=== PATIENT | male | born 1945 | race Two or more races ===

== ENCOUNTER 2019-12-02 12:43 | Inpatient (IN) | payer MEDICARE, OTHER ==
[~2019-12-02] VITALS: Ht 172.7 cm; Wt 78.5 kg
[2019-12-02 12:43] VITALS: BP 158/76
--- NOTE | 2019-12-02 13:01 | Emergency Room Report ---
History of Present Illness General Chief Complaint: Syncope Source: Patient, EMS Present Illness HPI 74-year-old male with past medical history of cancer status s/p resection BIBA status post witnessed syncopal episode prior to arrival. Pt is a poor historian. States he gets chemo every 4-6 weeks at [facility]. Does not recall which cancer is his primary cancer. According to EMS, the patient's family on scene told them that the patient was in the kitchen when he passed out and fell forward onto his right shoulder. They assisted him to the ground. Questionable head trauma. Denies blood thinners. Pt denies prodromal CP, SOB, CALLAHAN, neck pain, n/v/d, melena hematochezia. Does state he has been having bright red bleeding from his martinez for some time and that it might be clogged. Patient is unable to tell me why he was hospitalized at [facility]. The patient's symptoms were gradual onset, severity was moderate, duration since 1 day, prior to arrival. Quality: Weakness Past medical history: Cancer Past surgical history: Cancer resection Smoking: Denies Alcohol use: Denies Drug use: Denies Review of systems: CONST: No fevers or chills, No night sweats PULMONARY: No productive cough, No shortness of breath CARDIAC: No chest pain, No palpitations GI: No vomiting, No diarrhea , No melena_or_BRBPR : No dysuria, No hematuria, No discharge NEURO: No new_focal_weakness_or_numbness, No confusion, No vision changes 14 point Review of Systems is otherwise negative except per HPI Physical Exam: GENERAL: Awake_alert_ nontoxic, no acute distress Spo2 98% on RA -normal EYES: Extraocular muscles are intact. Conjunctivae clear. Lids without swelling ENT: External nose and ear normal_in_appearance. Oropharynx clear. Head_ atraumatic, Moist_oral_mucosa No midline cervical, thoracic, lumbar spinal step-offs or deformity. No meningismus. NECK: No JVD. No meningismus. No thyromegaly. Supple. Trachea midline RESP: Normal respiratory effort. Symmetric rise. No stridor. Clear_to_ auscultation_No_rales_No_wheezes CARDIAC: Regular rate and regular rhytm. No_significant pedal edema. ABDOMEN: Soft. Nondistended. Nontender_No_rebound_or_guarding. Previous abdominal surgical scar. Well-healed. No cellulitis Chronic indwelling Martinez. Gross hematuria around 200 cc. MSK: Normal muscle tone, without rigidity. Extremities without asymmetric deformity or swelling. SKIN: Warm and dry. No visible cyanosis or pallor. No rash NEUROLOGIC: Alert, oriented x3. Motor_and_sensation_grossly_intact. No truncal ataxia. Gait_normal Psych: Normal mood and affect, normal judgment and insight - COORDINATION OF CARE Case was discussed with: Patient , Patient's Family , Patient's Physician Any labs and imaging that were ordered were interpreted as part of the medical decision making: Medical Decision Making/Plan: Differential diagnosis for the patients symptoms include , malignant arrhythmias, obstructive heart disease (critical aortic stenosis, hypertrophic cardiomyopathy), acute anemia, severe dehydration, electrolyte abnormalities, among others. Patient's exam shows gross hematuria. NO focal neuro deficits noted. No C/T/L spinal step offs or peritoneal abdomen, doubt aortic dissection. No palpable amdominal mass to suggest AAA. EKG shows no signs of malignant arrhythmia such as Brugada syndrome, delta wave , epsilon wave, significant heart block, or QTc >500. CXR shows no acute disease. Shoulder Xray is WNL. Troponin is negative x1. Labs show no severe electrolyte derangement such as severe hyponatremia, hypokalemia, acidosis, or hypoglycemia. EKG shows normal sinus rhythm. First-degree AV block. There are biphasic T waves in single beats in lead V2 and V3. Questionable left ventricular hypertrophy Repeat EKG shows normal biphasic T waves. Suspect artifact. Positive left ventricular hypertrophy. CT head negative for acute intracranial hemorrhage. The patient has no loud murmur or evidence of significant obstructive heart disease, symptoms are not in the setting of exertion. The patient is neurologically intact, with normal cerebellar exam, without any evidence of central vertigo as a cause of their symptoms. They appear well hydrated without any evidence of severe dehydration or acute hypovolemia. However, given the patients risk factors, the patient would benefit from admission to observation for continuous cardiac monitoring, given the possibility of cardiac syncope. I spoke with Dr. Champion, and reviewed the patients presentation, workup, results, and treatment. They will admit the patient for further care and evaluation, and assume care of the patient at this time. Allergies: Coded Allergies: ASPIRIN (Verified Allergy, Unknown, 12/02/19) COVID-19 Screening Contact w/high risk pt: No Experienced COVID-19 symptoms?: No COVID-19 Testing performed SADDLE STITCH OPERATOR: No Physical Exam Vital Signs Date Time Temp Pulse Resp B/P (MAP) Pulse Ox O2 Delivery O2 Flow Rate FiO2 12/02/19 12:27 98.2 60 18 144/70 (94) 98 Room Air Sp02 EP Interpretation: reviewed, normal Medical Decision Making Diagnostic Impression: Primary Impression: Syncope Additional Impressions: Hematuria Cancer Shoulder pain, right Contusion of bone EKG Diagnostic Results PA Scribe Text 12-lead EKG (interpreted by me) Time: 1229 Indication: Rhythm analysis Tracing visualized and Interpreted by me. Rhythm: Normal sinus rhythm Rate: 68 bpm QTc: 416 Morphology: No_significant_ST_elevations_or_depressions, No STEMI Impression: Normal_sinus_rhythm_without_significant_abnormality 12-lead EKG (interpreted by me) Time: 1311 Indication: Rhythm analysis Tracing visualized and Interpreted by me. Rhythm: Normal sinus rhythm Rate: 61 bpm QTc: 416 Morphology: No_significant_ST_elevations_or_depressions, No STEMI Impression: Normal_sinus_rhythm_without_significant_abnormality Low ventricular hypertrophy. Chest X-Ray Diagnostic Results Chest X-Ray Diagnostic Results : KADI Scribe Rodney Chest X-Ray: Views: 1 view(s) Indication: Syncope Findings: Normal heart size. Mediastinum normal. No infiltrate. Impression: No acute disease The X-ray(s) were independently viewed and interpreted contemporaneously Electronically signed by Sandy light DO R Shoulder X-ray: Views: [ 3 ] view(s) No fracture. Normal alignment. Soft tissues normal. Joint spaces normal. Indication: [Pain] Impression: [no acute disease] The X-ray(s) were independently viewed and interpreted contemporaneously - Electronically signed by Sandy light DO Reevaluation Time: 13:48 Last Vital Signs Date Time Temp Pulse Resp B/P (MAP) Pulse Ox O2 Delivery O2 Flow Rate FiO2 12/02/19 12:27 98.2 60 18 144/70 (94) 98 Room Air Status: improved Disposition: ADMITTED INPATIENT Admit Decision Time: 13:01 Condition: Stable Sandy Sahni D.O. Dec 02, 2019 13:01
[2019-12-02 13:06] LABS: BASOPHILS % (AUTO) 0.4 % (0.0-2.0); EOSINOPHILS % (AUTO) 0.1 % (0.0-3.0); HEMATOCRIT 41.2 % (42.0-52.0); HEMOGLOBIN 13.8 G/DL (14.2-18.0); MEAN CORPUSCULAR VOLUME 105 FL (80-99); MONOCYTES % (AUTO) 7.4 % (1.0-10.0); NEUTROPHILS % (AUTO) 83.2 % (45.0-75.0); PLATELET COUNT 195 K/UL (150-450); RED BLOOD COUNT 3.91 M/UL (4.70-6.10); RED CELL DISTRIBUTION WIDTH 14.1 % (11.6-14.8); WHITE BLOOD COUNT 10.3 K/UL (4.8-10.8)
[2019-12-02] MEDS ORDERED: TEMOVATE15 GM TOP (13:12)
[2019-12-02] MEDS ORDERED: DELTA D310 MCG PO (13:12)
[2019-12-02] MEDS ORDERED: FOSAMAX70 MG ORAL (13:12)
[2019-12-02] MEDS ORDERED: XELODA150 MG ORAL (13:12)
[2019-12-02] MEDS ORDERED: AMITRIPTYLINE100 MG ORAL (13:12)
[2019-12-02] MEDS ORDERED: AMLODIPINE BESY10 MG ORAL (13:12)
--- NOTE | 2019-12-02 13:29 | Diagnostic Imaging Report ---
Indication: Syncope Technique: spiral acquisitions obtained through the brain. Angled axial and coronal 5 x 5 mm slices were reconstructed. No IV contrast utilized. Radiation dose was minimized using automated exposure control Total dose length product 1072 mGycm. CTDIvol(s) 53 mGy Comparison: none FINDINGS: No acute hemorrhage or edema. No mass effect or midline shift. There is age-related enlargement of the ventricles and extra axial CSF spaces. There is periventricular deep white matter ischemic change. Normal phillips-white differentiation. Visualized orbits are unremarkable. Visualized sinuses are unremarkable. Intact calvarium. IMPRESSION: Chronic and age-related changes. Negative for acute intracranial bleed or mass effect The CT scanner at [facility] is accredited by the [employer] and the scans are performed using protocols designed to limit radiation exposure to as low as reasonably achievable to attain images of sufficient resolution adequate for diagnostic evaluation
[2019-12-02 13:32] LABS: ANION GAP 7 mmol/L (5-15); BLOOD UREA NITROGEN 9 mg/dL (7-18); CALCIUM 8.4 MG/DL (8.5-10.1); CARBON DIOXIDE 26 MMOL/L (21-32); CHLORIDE 99 MMOL/L (98-107); CREATININE 1.1 MG/DL (0.55-1.30); POTASSIUM 3.7 MMOL/L (3.5-5.1); SODIUM 132 MMOL/L (136-145)
[2019-12-02] MEDS ORDERED: TEMODAR100 MG PO (13:32)
[2019-12-02] MEDS ORDERED: ZOFRAN4 MG ORAL (13:32)
[2019-12-02] MEDS ORDERED: DOXAZOSIN MESYLA4 MG ORAL (13:32)
[2019-12-02] MEDS ORDERED: PANTOPRAZOLE SO40 MG ORAL (13:32)
[2019-12-02] MEDS ORDERED: GABAPENTIN600 MG ORAL (13:32)
[2019-12-02] MEDS ORDERED: MULTIVITAMINS1 EAC8 ORAL (13:32)
[2019-12-02] MEDS ORDERED: VITAMIN B-1100 MG ORAL (13:32)
[2019-12-02] MEDS ORDERED: FLUTICASONE PRO16 G1 NASAL (13:32)
[2019-12-02] MEDS ORDERED: FOLIC ACID1 MG ORAL (13:32)
[2019-12-02] MEDS ORDERED: NALTREXONE HCL50 MG PO (13:32)
[2019-12-02 13:44] LABS: ALANINE AMINOTRANSFERASE 21 U/L (12-78); ALBUMIN 3.2 G/DL (3.4-5.0); ALBUMIN/GLOBULIN RATIO 0.9 (1.0-2.7); ALKALINE PHOSPHATASE 55 U/L (46-116); ASPARTATE AMINO TRANSFERASE 24 U/L (15-37); BILIRUBIN,TOTAL 0.9 MG/DL (0.2-1.0)
--- NOTE | 2019-12-02 14:45 | Diagnostic Imaging Report ---
Indication: Right shoulder pain Technique: 3 views of the shoulder Comparison: none Findings: No acute fractures. No dislocations. Joint spaces are preserved Impression: Negative
--- NOTE | 2019-12-02 14:45 | Diagnostic Imaging Report ---
Indication: Reason For Exam: SYNCOPE Technique: One view of the chest Comparison: none Findings: Lungs and pleural spaces are clear. Heart size is normal. Impression: No acute process
[2019-12-02] MEDS ORDERED: Morphine Sulfate 2mg/ml Inj(IV/IM USE ONLY) IVP ONE (15:00)
[2019-12-02] MEDS ORDERED: Morphine Sulfate 2mg/ml Inj(IV/IM USE ONLY) IVP PRN (18:00)
[2019-12-02] MEDS ORDERED: HydrALAZINE 10mg Tab ORAL PRN (18:00)
[2019-12-02] MEDS ORDERED: HYDROcodone/Acetamin 5/325 tab ORAL PRN (18:00)
--- OUTSIDE RECORDS SUMMARY | 2019-12-02 18:44 | Consultation ---
Consult Note Consult Note Blood Pressure 131/81 11/24/2019 2:58 PM PDT Pulse 80 11/24/2019 2:58 PM PDT Temperature 36.1 C (96.9 F) 11/24/2019 2:58 PM PDT Respiratory Rate 18 11/24/2019 2:58 PM PDT Oxygen Saturation 97% 11/24/2019 2:58 PM PDT Inhaled Oxygen Concentration - - Weight 78.6 kg (173 lb 3.2 oz) 11/24/2019 2:58 PM PDT Height 175.3 cm (5' 9") 11/24/2019 2:58 PM PDT Body Mass Index 25.58 11/24/2019 2:58 PM PDT Patient Instructions - documented in this encounter Patient Instructions Olga Lopez MD - 11/24/2019 2:30 PM PDT No gallito alcohol antes y despues cirugia No gallito aspirina, ibuprofen, diclofenac, naproxen 7 dotson antes de cirugia No gallito herbos 14 dotson antes de cirugia ~ Progress Notes - documented in this encounter Olga Lopez MD - 11/24/2019 2:30 PM PDT [facility] PREOPERATIVE MEDICINE CONSULTATION PREOPERATIVE MEDICINE CONSULTATION NOTE Patient Name: Pierre Melton Patient Date of : 1945 Date of Consultation: 11/24/2019 PRIMARY CARE PHYSICIAN: Olga Lopez MD REFERRING PHYSICIAN/SURGEON: Dr. Mcdowell PLANNED SURGERY: TURP PLANNED SURGERY DATE: 12/01/19 PLANNED ANESTHESIA: General CHIEF COMPLAINT / REASON FOR CONSULTATION: Preoperative medical evaluation. SOURCE OF INFORMATION: The following history was generated by an interview with Mr. MELTON, as well as a review of medical records available in [facility]. HISTORY OF PRESENT ILLNESS: Pierre Melton is a 74 y.o. male who has a past medical history of Anemia (05/06/2018), Anxiety, BPH (benign prostatic hyperplasia ), Cancer (HCC/CONOR), Elevated liver enzymes, Erectile dysfunction, History of blood transfusion, Hypertension, Neuroendocrine tumor, Osteoarthritis, Osteoporosis, Post-operative nausea and vomiting, Postherpetic neuralgia, Renal insufficiency, S/P laparoscopic cholecystectomy, Single kidney, Sludge in gallbladder, and Zoster (2012). The patient is presenting to outpatient clinic today for preoperative medical evaluation. # BPHs/p TURP x2with nocturia-doxazosin 4 mg daily, pending repeat TURP # HTN - amlodipine 10 mg daily # Alcohol abuse - still occasional beer, last drink 1 week ago, per typically drinking 2-3 beers/day, no longer taking naltrexone per Dr. 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 He has no history of coronary stents, pacemaker or AICD. He denies resting or exertional chest discomfort, dyspnea, presyncope, syncope, palpitations, LE edema, orthopnea, or PND. No prior stress testing. Stress test 07/15/12 Impression: a) Normal rest/stress myocardial perfusion test with no scintigraphic evidence of stress induced ischemia or prior myocardial infarction. b) Normal left ventricular size and systolic function. The patient has a medical history that includes (check all that apply; provide details as needed): [] Coronary artery disease. [] Cardiac arrhythmia. [] Valvular heart disease. [] Cerebrovascular disease (history of CVA, TIA). [] Heart failure. [] Diabetes mellitus. [] Thyroid disease. [x] Renal disease. Single kidney, normal Cr [] Liver disease. [] Rheumatologic disease. [] Obstructive lung disease (COPD, asthma, etc.). [x] Obstructive sleep apnea. Diagnosed JOSE pending new CPAP since 11/12/19, follows Dr. Haines Pulmonology [] Pulmonary hypertension. [] Current inhaled tobacco smoker. [] Venous thromboembolic disease (PE, DVT). [x] Hematological and/or oncological disease. NET of gastric antrum, s/p XRT/ resection, now on chemo [] None of the above. Preoperative functional status (check one): [x] Totally independent. [] Partially dependent. [] Totally dependent. Exercise/activity tolerance: His functional capacity is greater than 4 METS ( able to climb more than flights of stairs without rest). Can walk 6-7 blocks without SOB/CP. Stairs limited 2/2 herpetic neuropathy pain STOP-BANG (Anesthesia risk assessment): Snoring - Do you snore loudly (louder than talking or loud enough to be heard through closed doors)? [x] Yes [] No Tired - Do you often feel tired, fatigued, or sleepy during daytime? [x] Yes [] No Observed - Has anyone observed you stop breathing during your sleep? [x] Yes [] No Blood pressure - Do you have or are you being treated for high blood pressure? [ x] Yes [] No BMI more than 35 kg/m2? [] Yes [x] No Age over 50 yr old? [x] Yes [] No Neck circumference greater than 16 in? [] Yes [x] No Gender male? [x] Yes [] No Body mass index is 25.58 kg/m. PAST MEDICAL/SURGICAL HISTORY: Past Medical History: Diagnosis Date Anemia 05/06/2018 Anxiety BPH (benign prostatic hyperplasia) Cancer (HCC/CONOR) neuroendocrine Elevated liver enzymes Due to alcohol Erectile dysfunction History of blood transfusion Hypertension Neuroendocrine tumor Gastric antrum, s/p resection (gastroduodenectomy, Billroth II), XRT in 2011; sandostatin [id number] now on hold due to hyponatremia Osteoarthritis Osteoporosis on fosamax since 2016 Post-operative nausea and vomiting s/p TURP 2002 Postherpetic neuralgia Renal insufficiency S/P laparoscopic cholecystectomy Single kidney Sludge in gallbladder Zoster 2012 Past Surgical History: Procedure Laterality Date ABDOMINAL SURGERY r/t neuroendocrine ca APPENDECTOMY 25years ago CHOLECYSTECTOMY Neuroendocrine tumor resection 2012 PARTIAL GASTRECTOMY STOMACH SURGERY 2012 TRANSURETHRAL RESECTION OF PROSTATE 2002 at [facility] * Complications with any surgical procedure listed above: No. * Personal history of adverse reaction to anesthesia: No. MEDICATIONS: Current Outpatient Medications Medication Sig alendronate (FOSAMAX) 70 mg tablet Take 70 mg by mouth every seven (7) days . AMITRIPTYLINE 50 mg tablet TAKE 1 TABLET BY MOUTH EVERYDAY AT BEDTIME amLODIPine 10 mg tablet Take 1 tablet (10 mg total) by mouth daily. capecitabine 500 mg tablet Take 3 tablets (1,500 mg total) by mouth two (2) times daily Day 1-14, then off six weeks. cholecalciferol 25 mcg (1000 units) capsule Take 1 capsule (1,000 Units total ) by mouth daily. clindamycin 1% external solution Apply to affected area 2 times daily. clobetasol 0.05% external solution Apply topically two (2) times daily. diclofenac 1% gel Apply 4g TID as needed for knee pain. DOXAZOSIN 4 mg tablet TAKE 1 TABLET (4 MG TOTAL) BY MOUTH AT BEDTIME. FOLIC ACID 1 mg tablet TAKE 1 TABLET BY MOUTH EVERY DAY GABAPENTIN 600 mg tablet TAKE 1 TABLET (600 MG TOTAL) BY MOUTH THREE (3) TIMES DAILY. multivitamin tablet Take 1 tablet by mouth daily. NALTREXONE 50 mg tablet TAKE 1 TABLET BY MOUTH EVERY DAY ondansetron 8 mg tablet Take 1 tablet (8 mg total) by mouth every eight (8) hours as needed for Nausea or Vomiting. pantoprazole [address] tablet Take 1 tablet (40 mg total) by mouth daily. sodium chloride 1 g tablet Take 1 g by mouth daily. temozolomide 100 mg capsule TAKE 4 CAPSULES (400MG) BY MOUTH ONE TIME DAILY ONLY ON DAYS 10-14 OF A 28 DAY CYCLE. *GENERIC FOR TEMODAR*. THIAMINE 100 mg tablet TAKE 1 TABLET BY MOUTH EVERY DAY zoster vac recomb adjuvanted (SHINGRIX) 50 mcg injection Administer 50 MCG IM now and repeat in 2 - 6 months. (Patient not taking: Reported on 10/16/2019.) No current facility-administered medications for this visit. ALLERGIES: Aspirin and Shellfish allergy SOCIAL HISTORY: Does not smoke tobacco, 2-3 alcoholic drinks/day reports that he has never smoked. He has never used smokeless tobacco. He reports current alcohol use. He reports that he does not use drugs. FAMILY HISTORY: family history includes Arthritis in an other family member; Breast cancer in his sister; Hypertension in an other family member; Prostate cancer in his father. Reviewed & non-contributory except as noted above. * Family history of adverse reaction to anesthesia: No. ROS: A 14-system review was performed and was otherwise negative except as noted above in the HPI and as follows: Urinary frequency. SURROGATE MEDICAL DECISION MAKER: In the event the patient is unable to make medical decisions, the patient designates the following person as his surrogate medical decision maker: Extended Emergency Contact Information Primary Emergency Contact: Yury Melton [facility] Mobile Relation: Son Secondary Emergency Contact: Teodora Melton Address: [address], [place] [id number] [place] [address] Mobile Relation: Spouse Code Status: FULL CODE PHYSICAL EXAMINATION: BP 131/81 | Pulse 80 | Temp 36.1 C (96.9 F) (Forehead) | Resp 18 | Ht 5' 9" ( 1.753 m) | Wt 173 lb 3.2 oz (78.6 kg) | SpO2 97% | BMI 25.58 kg/m General: alert, well-appearing, well-developed, and in no distress Head: Atraumatic, normocephalic Eyes: pupils equal & symmetric, sclera anicteric Ears, Nose, Mouth & Throat: hearing grossly normal, mucous membranes moist, pharynx normal without lesions. Neck: supple, trachea appears midline, no thyroid mass. Cardiac: Regular rate and rhythm, normal S1/S2, no M/R/G, JVP < 8 cm, no lower extremity edema Lungs: clear to auscultation; no wheezes, rales or rhonchi; normal effort, no accessory muscle use. Abdomen: soft, nontender, nondistended, no hepatosplenomegaly appreciated. MSK: no joint tenderness, deformity or swelling. Skin: normal coloration and turgor, no systemic rashes. Neuro: alert, oriented, normal speech, no focal findings or movement disorder noted LABORATORY STUDIES: Lab Results Component Value Date NA 133 (L) 10/07/2019 K 4.0 10/07/2019 CL 97 10/07/2019 CO2 21 10/07/2019 BUN 10 10/07/2019 CREAT 0.80 10/07/2019 GLUCOSE 92 10/07/2019 CALCIUM 8.8 10/07/2019 MG 1.6 12/18/2018 PHOS 2.2 (L) 08/07/2014 ALT 11 10/07/2019 AST 27 10/07/2019 BILITOT 1.1 10/07/2019 ALKPHOS 85 10/07/2019 ALBUMIN 4.1 10/07/2019 HGBA1C 5.4 05/28/2019 TSH 2.1 05/28/2019 WBC 3.53 (L) 10/07/2019 HGB 12.8 (L) 10/07/2019 HCT 36.9 (L) 10/07/2019 MCV 103.1 (H) 10/07/2019 PLT 147 10/07/2019 APTT 35.3 12/17/2018 PT 13.3 12/16/2018 INR 1.1 12/16/2018 OTHER STUDIES: EK11/24/2019, reviewed by me: Normal sinus rhythm, heart rate 71, QTc 389, no pathologic Q waves, no acute ischemic ST-T changes. Comparison to prior EKG (if available): 12/16/18. TTE 03/07/18 IMPRESSION: 1. Normal left ventricular size. 2. Mild concentric left ventricular hypertrophy. 3. Left ventricular ejection fraction is approximately 55 to 60%. 4. The calculated ejection fraction (Gil's) is 55 %. 5. Abnormal LV diastolic function (Grade I). 6. Mild aortic regurgitation. Stress test 07/15/12 Impression: a) Normal rest/stress myocardial perfusion test with no scintigraphic evidence of stress induced ischemia or prior myocardial infarction. b) Normal left ventricular size and systolic function. VISIT DIAGNOSES: 1. Preoperative examination 2. BPH with urinary obstruction 3. Essential hypertension IMPRESSION/RISK ASSESSMENT: The patient is low-risk (0.4%) for perioperative major adverse cardiac events (MACE) for the proposed surgery. Functional capacity (based on history obtained in clinic today): > or = 4 METS. ASA physical status classification: I: Healthy, no disease outside surgical process.. Risk factors for perioperative pulmonary complications include: age > 50 years *, general anesthesia*, obstructive sleep apnea and alcohol use. Known untreated JOSE, awaiting CPAP approval RECOMMENDATIONS: The patient is appropriately risk-stratified for the proposed surgery. The patient is medically optimized for the proposed surgery. The patient does not have active medical issues that need to be addressed prior to proceeding with the proposed surgery. Preoperative laboratory/diagnostic testing: Not indicated. Perioperative medication management: The patient was advised to continue all current outpatient medications perioperatively, with the following exceptions: none. The patient was advised to avoid use of aspirin-containing products at least 7 days prior to surgery (10 days for neurosurgical and spine procedures), NSAID- containing products at least 7 days prior to surgery, and herbal medications/ supplements at least 14 days prior to surgery. Additional recommendations regarding perioperative management of chronic medical conditions as follows: Advised to stop drinking alcohol, f/u Na given hx hyponatremia in setting of alcohol abuse Recommend routine follow-up with primary care physician and/or subspecialty providers following surgery. Orders Placed This Encounter Bacterial Culture Urine, Clean Catch CBC & Auto Differential Comprehensive Metabolic Panel APTT Prothrombin Time Panel Urinalysis,Routine ECG 12-Lead Clinic Performed Thank you for allowing me to participate in the care of this patient. Please feel free to contact me with any questions regarding this patient's preoperative medical evaluation. Signed: Olga Lopez MD Addendum 11/26/2019: Unremarkable pre-op labs: stable chronic hyponatremia, pt stopped drinking 1 week ago in anticipation of surgery. Urine culture negative growth to date. Results for PIERRE MLETON ( ) as of 11/26/2019 15:48 Ref. Range 11/24/2019 15:45 White Blood Cell Count Latest Ref Range: 4.16 - 9.95 x10E3/uL 5.35 Hemoglobin Latest Ref Range: 13.5 - 17.1 g/dL 13.5 Hematocrit Latest Ref Range: 38.5 - 52.0 % 40.3 Red Blood Cell Count Latest Ref Range: 4.41 - 5.95 x10E6/uL 3.75 (L) Mean Corpuscular Volume Latest Ref Range: 79.3 - 98.6 fL 107.5 (H) Mean Corpuscular Hemoglobin Latest Ref Range: 26.4 - 33.4 pg 36.0 (H) MCH Concentration Latest Ref Range: 31.5 - 35.5 g/dL 33.5 Red Cell Distribution Width-SD Latest Ref Range: 36.9 - 48.3 fL 63.7 (H) Red Cell Distribution Width-CV Latest Ref Range: 11.1 - 15.5 % 16.1 (H) Platelet Count, Auto Latest Ref Range: 143 - 398 x10E3/uL 180 Mean Platelet Volume Latest Ref Range: 9.3 - 13.0 fL 10.4 Nucleated RBC%, automated Latest Ref Range: No Ref. Range % 0.0 Absolute Nucleated RBC Count Latest Ref Range: 0.00 - 0.00 x10E3/uL 0.00 Neutrophil Percent, Auto Latest Ref Range: No Ref. Range % 65.5 Lymphocyte Percent, Auto Latest Ref Range: No Ref. Range % 19.4 Monocyte Percent, Auto Latest Ref Range: No Ref. Range % 12.9 Eosinophil Percent, Auto Latest Ref Range: No Ref. Range % 1.1 Basophil Percent, Auto Latest Ref Range: No Ref. Range % 1.1 Immature Granulocytes% Latest Ref Range: No Reference Range % 0.0 Absolute Neut Count Latest Ref Range: 1.80 - 6.90 x10E3/uL 3.50 Neutrophil Abs (Prelim) Latest Ref Range: See Absolute Neut Ct. x10E3/uL 3.50 Absolute [place] Count Latest Ref Range: 0.20 - 0.80 x10E3/uL 0.69 Absolute Lymphocyte Count Latest Ref Range: 1.30 - 3.40 x10E3/uL 1.04 (L) Absolute Baso Count Latest Ref Range: 0.00 - 0.10 x10E3/uL 0.06 Absolute Eos Count Latest Ref Range: 0.00 - 0.50 x10E3/uL 0.06 Absolute Immature Gran Count Latest Ref Range: 0.00 - 0.04 x10E3/uL 0.00 Prothrombin Time Latest Ref Range: 11.5 - 14.4 seconds 13.6 INR Latest Ref Range: . 1.1 APTT Latest Ref Range: 24.4 - 36.2 seconds 32.6 Sodium Latest Ref Range: 135 - 146 mmol/L 132 (L) Potassium Latest Ref Range: 3.6 - 5.3 mmol/L 4.9 Chloride Latest Ref Range: 96 - 106 mmol/L 92 (L) Total CO2 Latest Ref Range: 20 - 30 mmol/L 22 Anion Gap Latest Ref Range: 8 - 19 mmol/L 18 Urea Nitrogen Latest Ref Range: 7 - 22 mg/dL 7 Creatinine Latest Ref Range: 0.60 - 1.30 mg/dL 0.75 GFR Est.for Latest Ref Range: See GFR Additional Information mL /min/1.73m2 >89 GFR Est.for Non- Americ Latest Ref Range: See GFR Additional Information mL/min/1.73m2 >89 GFR Additional Information Unknown See Comment Glucose Latest Ref Range: 65 - 99 mg/dL 98 Calcium Latest Ref Range: 8.6 - 10.4 mg/dL 9.4 AST (SGOT) Latest Ref Range: 13 - 47 U/L 30 ALT (SGPT) Latest Ref Range: 8 - 64 U/L 15 Alkaline Phosphatase Latest Ref Range: 37 - 113 U/L 67 Bilirubin,Total Latest Ref Range: 0.1 - 1.2 mg/dL 1.2 Albumin Latest Ref Range: 3.9 - 5.0 g/dL 4.3 TOTAL PROTEIN Latest Ref Range: 6.1 - 8.2 g/dL 7.7 Urine Color Latest Ref Range: Light-Yellow pH,Urine Latest Ref Range: 5.0 - 8.0 6.5 Specific [place] Latest Ref Range: 1.005 - 1.030 1.007 Blood,Dipstick Latest Ref Range: Negative Negative Bili,Dipstick Latest Ref Range: Negative Negative Glucose,Random Urine Latest Ref Range: Negative Negative Ketones Latest Ref Range: Negative Negative Protein Latest Ref Range: Negative Negative Nitrite Latest Ref Range: Negative Negative Leukocyte Esterase Latest Ref Range: Negative Negative RBC per uL Latest Ref Range: 0 - 11 cells/uL 0 WBC per uL Latest Ref Range: 0 - 22 cells/uL 1 RBC per HPF Latest Ref Range: 0 - 2 cells/HPF 0 WBC per HPF Latest Ref Range: 0 - 4 cells/HPF 0 Squamous Epi Cells Latest Ref Range: 0 - 17 cells/uL 1 BACTERIAL CULTURE URINE Unknown Rpt Bacterial Culture Urine Unknown No Growth at 1:1000 dilution Olga Lopez MD [facility] Internal Medicine [address] [facility] [facility] [address] Kevin Ramirez MD Dec 02, 2019 18:43
--- NOTE | 2019-12-02 18:46 | Cardiology Progress Note ---
Assessment/Plan Assessment/Plan [id number] full note dicated please review soumya note which i copied in his records form [facility] hhdevorah balderrama turp at [facility] yest dcd today may elliot passed out whe stood up at home seril enxyme / ekg / echo / tele ivf observe on tele d/w dr hickman as well Objective Last 24 Hour Vital Signs Date Time Temp Pulse Resp B/P (MAP) Pulse Ox O2 Delivery O2 Flow Rate FiO2 12/02/19 15:18 97.8 69 16 160/84 98 Room Air 12/02/19 12:43 98.0 61 18 158/76 98 Room Air 12/02/19 12:27 98.2 60 18 144/70 (94) 98 Room Air Laboratory Tests Test 12/02/19 12:45 White Blood Count 10.3 K/UL (4.8-10.8) Red Blood Count 3.91 M/UL (4.70-6.10) L Hemoglobin 13.8 G/DL (14.2-18.0) L Hematocrit 41.2 % (42.0-52.0) L Mean Corpuscular Volume 105 FL (80-99) H Mean Corpuscular Hemoglobin 35.3 PG (27.0-31.0) H Mean Corpuscular Hemoglobin Concent 33.5 G/DL (32.0-36.0) Red Cell Distribution Width 14.1 % (11.6-14.8) Platelet Count 195 K/UL (150-450) Mean Platelet Volume 6.4 FL (6.5-10.1) L Neutrophils (%) (Auto) 83.2 % (45.0-75.0) H Lymphocytes (%) (Auto) 9.0 % (20.0-45.0) L Monocytes (%) (Auto) 7.4 % (1.0-10.0) Eosinophils (%) (Auto) 0.1 % (0.0-3.0) Basophils (%) (Auto) 0.4 % (0.0-2.0) Prothrombin Time 11.1 SEC (9.30-11.50) Prothromb Time International Ratio 1.0 (0.9-1.1) Activated Partial Thromboplast Time 25 SEC (23-33) Sodium Level 132 MMOL/L (136-145) L Potassium Level 3.7 MMOL/L (3.5-5.1) Chloride Level 99 MMOL/L (98-107) Carbon Dioxide Level 26 MMOL/L (21-32) Anion Gap 7 mmol/L (5-15) Blood Urea Nitrogen 9 mg/dL (7-18) Creatinine 1.1 MG/DL (0.55-1.30) Estimat Glomerular Filtration Rate > 60 mL/min (>60) Glucose Level 120 MG/DL (74-106) H Calcium Level 8.4 MG/DL (8.5-10.1) L Total Bilirubin 0.9 MG/DL (0.2-1.0) Aspartate Amino Transf (AST/SGOT) 24 U/L (15-37) Alanine Aminotransferase (ALT/SGPT) 21 U/L (12-78) Alkaline Phosphatase 55 U/L (46-116) Troponin I 0.002 ng/mL (0.000-0.056) Pro-B-Type Natriuretic Peptide 157 pg/mL (0-125) H Total Protein 6.9 G/DL (6.4-8.2) Albumin 3.2 G/DL (3.4-5.0) L Globulin 3.7 g/dL Albumin/Globulin Ratio 0.9 (1.0-2.7) L Lipase 158 U/L (73-393) Microbiology Date/Time Source Procedure Growth Status 12/02/19 12:00 Nasopharynx SARS-CoV-2 RdRp Gene Assay - Final Complete Kevin Ramirez MD Dec 02, 2019 18:46
--- NOTE | 2019-12-02 19:19 | History & Physical ---
History of Present Illness General Reason for Hospitalization: Syncope Present Illness HPI 74-year-old male with past medical history of cancer status s/p resection BIBA status post witnessed syncopal episode prior to arrival. Pt is a poor historian. States he gets chemo every 4-6 weeks at [facility]. . According to EMS, the patient's family on scene told them that the patient was in the kitchen when he passed out and fell forward onto his right shoulder. They assisted him to the ground. Questionable head trauma. Denies blood thinners. Pt denies prodromal CP, SOB, CALLAHAN, neck pain, n/v/d, melena hematochezia. Does state he has been having bright red bleeding from his martinez for some time and that it might be clogged. CT head: FINDINGS: No acute hemorrhage or edema. No mass effect or midline shift. There is age-related enlargement of the ventricles and extra axial CSF spaces. There is periventricular deep white matter ischemic change. Normal phillips-white differentiation. Visualized orbits are unremarkable. Visualized sinuses are unremarkable. Intact calvarium. IMPRESSION: Chronic and age-related changes. Negative for acute intracranial bleed or mass effect he following history was generated by an interview with Mr. MELTON, as well as a review of medical records available in [facility]. Per recent Dc summary at [facility] HISTORY OF PRESENT ILLNESS: Pierre Melton is a 74 y.o. male who has a past medical history of Anemia (05/06/2018), Anxiety, BPH (benign prostatic hyperplasia ), Cancer (HCC/CONOR), Elevated liver enzymes, Erectile dysfunction, History of blood transfusion, Hypertension, Neuroendocrine tumor, Osteoarthritis, Osteoporosis, Post-operative nausea and vomiting, Postherpetic neuralgia, Renal insufficiency, S/P laparoscopic cholecystectomy, Single kidney, Sludge in gallbladder, and Zoster (2012). The patient is presenting to outpatient clinic today for preoperative medical evaluation. # BPHs/p TURP x2with nocturia-doxazosin 4 mg daily, pending repeat TURP # HTN - amlodipine 10 mg daily # Alcohol abuse - still occasional beer, last drink 1 week ago, per typically drinking 2-3 beers/day, no longer taking naltrexone per Dr. 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, now on oral chemocapecitabine/ temodar # post-herpetic neuralgia - gabapentin, amitriptyline Allergies: Coded Allergies: ASPIRIN (Verified Allergy, Unknown, 12/02/19) FISH CONTAINING PRODUCTS (Verified Allergy, Unknown, 12/02/19) SHELLFISH DERIVED (Verified Allergy, Unknown, 12/03/19) COVID-19 Screening Contact w/high risk pt: No Experienced COVID-19 symptoms?: No Medication History Scheduled Alendronate Sodium* (Fosamax*), 70 MG ORAL ONCE A WEEK, (Reported) Amitriptyline HCl (Amitriptyline HCl), 50 MG ORAL BEDTIME, (Reported) Amlodipine Besylate* (Amlodipine Besylate*), 10 MG ORAL DAILY, (Reported) Capecitabine (Xeloda), 1,500 MG ORAL TWICE A DAY, (Reported) Cholecalciferol (Vitamin D3) (Delta D3), 25 MCG PO DAILY, (Reported) Clobetasol Propionate (Clobetasol Propionate), 1 APPLIC TOP TWICE A DAY, ( Reported) Doxazosin Mesylate* (Doxazosin Mesylate*), 4 MG ORAL DAILY, (Reported) Fluticasone Propionate* (Fluticasone Propionate*), 2 SPRAY NASAL DAILY, ( Reported) Folic Acid* (Folic Acid*), 1 MG ORAL DAILY, (Reported) Gabapentin* (Gabapentin*), 600 MG ORAL THREE TIMES A DAY, (Reported) Multivitamin With Minerals (Multivitamins With Minerals*), 1 TAB ORAL DAILY, ( Reported) Naltrexone Hcl (Naltrexone Hcl), 50 MG PO DAILY, (Reported) Pantoprazole* (Pantoprazole*), 40 MG ORAL DAILY, (Reported) Thiamine Hcl* (Vitamin B-1*), 100 MG ORAL DAILY, (Reported) Scheduled PRN Ondansetron (Zofran), 8 MG ORAL Q8H PRN for Nausea & Vomiting, (Reported) Miscellaneous Medications Temozolomide (Temodar), 400 MG PO, (Reported) Patient History Healthcare decision maker Resuscitation status Advanced Directive on File Review of Systems Review of Symptoms General ROS: no weight loss or fever Psychological ROS: no depression or mood changes, no memory loss Ophthalmic ROS: no visual changes or eye irritation ENT ROS: no nasal congestion, hearing loss, dizziness Allergy and Immunology ROS: no allergic symptoms or urticaria Hematological and Lymphatic ROS: no swollen glands, unusual bleeding or bruising Endocrine ROS: no polyuria, polydipsia, weight changes, temperature intolerance Respiratory ROS: no cough, shortness of breath, or wheezing Cardiovascular ROS: no chest pain or dyspnea on exertion Gastrointestinal ROS: denies abdominal pain, bright red blood in stool. Musculoskeletal ROS: no myalgias or arthralgias Neurological ROS: no TIA or stroke symptoms Dermatological ROS: no new or changing skin lesions, rashes or pruritis Physical Exam Physical Exam General appearance: alert, cooperative, no distress, appears stated age Head: Normocephalic, without obvious abnormality, atraumatic Eyes: conjunctivae/corneas clear. PERRL, EOM's intact. Fundi benign Throat: Lips, mucosa, and tongue normal. Teeth and gums normal Neck: supple, symmetrical, trachea midline, no adenopathy, thyroid: not enlarged, symmetric, no tenderness/mass/nodules, no carotid bruit and no JVD Lungs: clear to auscultation bilaterally Heart: regular rate and rhythm, S1, S2 normal, no murmur, click, rub or gallop Abdomen: soft, non-tender. Bowel sounds normal. No masses, no organomegaly Extremities: extremities normal, atraumatic, no cyanosis or edema Pulses: 2+ and symmetric Skin: Skin color, texture, turgor normal. No rashes or lesions Neurologic: Grossly normal Last 24 Hour Vital Signs Date Time Temp Pulse Resp B/P (MAP) Pulse Ox O2 Delivery O2 Flow Rate FiO2 12/02/19 15:18 97.8 69 16 160/84 98 Room Air 12/02/19 12:43 98.0 61 18 158/76 98 Room Air 12/02/19 12:27 98.2 60 18 144/70 (94) 98 Room Air Laboratory Tests Test 12/02/19 12:45 White Blood Count 10.3 K/UL (4.8-10.8) Red Blood Count 3.91 M/UL (4.70-6.10) L Hemoglobin 13.8 G/DL (14.2-18.0) L Hematocrit 41.2 % (42.0-52.0) L Mean Corpuscular Volume 105 FL (80-99) H Mean Corpuscular Hemoglobin 35.3 PG (27.0-31.0) H Mean Corpuscular Hemoglobin Concent 33.5 G/DL (32.0-36.0) Red Cell Distribution Width 14.1 % (11.6-14.8) Platelet Count 195 K/UL (150-450) Mean Platelet Volume 6.4 FL (6.5-10.1) L Neutrophils (%) (Auto) 83.2 % (45.0-75.0) H Lymphocytes (%) (Auto) 9.0 % (20.0-45.0) L Monocytes (%) (Auto) 7.4 % (1.0-10.0) Eosinophils (%) (Auto) 0.1 % (0.0-3.0) Basophils (%) (Auto) 0.4 % (0.0-2.0) Prothrombin Time 11.1 SEC (9.30-11.50) Prothromb Time International Ratio 1.0 (0.9-1.1) Activated Partial Thromboplast Time 25 SEC (23-33) Sodium Level 132 MMOL/L (136-145) L Potassium Level 3.7 MMOL/L (3.5-5.1) Chloride Level 99 MMOL/L (98-107) Carbon Dioxide Level 26 MMOL/L (21-32) Anion Gap 7 mmol/L (5-15) Blood Urea Nitrogen 9 mg/dL (7-18) Creatinine 1.1 MG/DL (0.55-1.30) Estimat Glomerular Filtration Rate > 60 mL/min (>60) Glucose Level 120 MG/DL (74-106) H Calcium Level 8.4 MG/DL (8.5-10.1) L Total Bilirubin 0.9 MG/DL (0.2-1.0) Aspartate Amino Transf (AST/SGOT) 24 U/L (15-37) Alanine Aminotransferase (ALT/SGPT) 21 U/L (12-78) Alkaline Phosphatase 55 U/L (46-116) Troponin I 0.002 ng/mL (0.000-0.056) Pro-B-Type Natriuretic Peptide 157 pg/mL (0-125) H Total Protein 6.9 G/DL (6.4-8.2) Albumin 3.2 G/DL (3.4-5.0) L Globulin 3.7 g/dL Albumin/Globulin Ratio 0.9 (1.0-2.7) L Lipase 158 U/L (73-393) Microbiology Date/Time Source Procedure Growth Status 12/02/19 12:00 Nasopharynx SARS-CoV-2 RdRp Gene Assay - Final Complete Height (Feet): 5 Height (Inches): 8.00 Weight (Pounds): 170 Medications Current Medications Medications (Trade) Dose Ordered Sig/Mala Route PRN Reason Start Time Stop Time Status Last Admin Dose Admin Acetaminophen (Tylenol) 650 mg Q6H PRN ORAL Mild Pain (Pain Scale 1-3) 12/02/19 18:00 01/01/20 17:59 Acetaminophen/ Hydrocodone Bitart ([place] 5/325) 1 tab Q6H PRN ORAL Moderate Breakthru Pain (5-7) 12/02/19 18:00 12/09/19 17:59 Amitriptyline HCl (Elavil) 50 mg BEDTIME ORAL 12/02/19 21:00 01/01/20 20:59 Amlodipine Besylate (Norvasc) 10 mg DAILY ORAL 12/03/19 09:00 01/02/20 08:59 Clobetasol Propionate (Temovate) 1 applic TWICE A DAY TOPIC 12/03/19 09:00 03/02/20 08:59 Doxazosin Mesylate (Cardura) 4 mg DAILY ORAL 12/03/19 09:00 01/02/20 08:59 Fluticasone Propionate (Flonase) 2 spray DAILY NASAL 12/03/19 09:00 01/02/20 08:59 Folic Acid (Folate) 1 mg DAILY ORAL 12/03/19 09:00 01/02/20 08:59 Gabapentin (Neurontin) 600 mg THREE TIMES A DAY ORAL 12/03/19 09:00 01/02/20 08:59 Hydralazine HCl (Apresoline) 10 mg Q6H PRN ORAL For High Blood Pressure 12/02/19 18:00 03/01/20 17:59 Morphine Sulfate (Morphine Sulfate) 2 mg Q3H PRN IVP Severe Pain (Pain Scale 7-10) 12/02/19 18:00 12/09/19 17:59 Multivitamins Therapeutic (Therapeutic Multivitamin) 1 ea DAILY ORAL 12/03/19 09:00 01/02/20 08:59 Non-Formulary Medication (Non-Formulary Med) 1 ea DAILY ORAL 12/03/19 09:00 01/02/20 08:59 UNV Ondansetron HCl (Zofran) 8 mg Q8H PRN ORAL Nausea & Vomiting 12/02/19 18:15 01/01/20 18:14 Pantoprazole (Protonix) 40 mg DAILY ORAL 12/03/19 09:00 01/02/20 08:59 Thiamine HCl (Vitamin B1) 100 mg DAILY ORAL 12/03/19 09:00 01/02/20 08:59 Vitamin D (Vitamin D) 400 intlu DAILY ORAL 12/03/19 09:00 01/02/20 08:59 Assessment/Plan Diagnosis [place] I: #syncope- likely vasovagal #hematuria # BPHs/p TURP x2with nocturia-doxazosin 4 mg daily, pending repeat TURP # HTN - amlodipine 10 mg daily # Alcohol abuse - still occasional beer, last drink 1 week ago, per typically drinking 2-3 beers/day, no longer taking naltrexone per Dr. 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 I have a high level of concern because . Patient is at high risk for . Plan of care/treatment include . Patient care is expected to be greater than 2 midnights. OBSERVATION level of care is warranted for this patient. Patient is a 89 year old with who presents with . Patient will be admitted for 1 midnight, but if additional night(s) is/are necessary, patient will be converted to inpatient status for the entire hospitalization Disposition: Once the patient is stable to leave the hospital, I anticipate the patient will likely be discharged to the following environment: Estimated discharge date: I spent 70 minutes on this patient's case, and minutes was dedicated to counseling and/or care coordination. MIPS (Merit-based Incentive Payment System) Applicable CPT: 84806, 07159 CHECK ALL THAT ARE MET: Measure #5 (CHF): All ages. Prescribe LAMIN/ARB upon discharge for patients with left ventricular systolic dysfunction. If not, the reason is clearly documented in the medical chart. Measure #8 (CHF): All ages. Prescribe a beta sanjiv upon discharge for patients with left ventricular systolic dysfunction. If not, the reason is clearly documented in the medical chart. Measure #47 Advance care plan or surrogate decision maker documented in the medical record. Measure #130 The provider has documented, updated, or reviewed the patients current medication list and has documented it in the patients note. Measure #374 (All): Send report to referring provider. Measure #407(Sepsis due to MSSA bacteremia): Age 18+ Patient treated with a beta-lactam antibiotic (Nafcillin, Oxacillin or Cefazolin) as definitive therapy. MEDICAL COMPLEXITY High complexity medical decision making (need 2/3 categories) Problem - need 4 points Acute/new problem with new plan for workup (4 points, 1 max) Acute/new problem without additional workup (3 points, 1 max) Unstable chronic problem actively being managed (2 point each, 2 max) Stable chronic problem actively being managed (1 point each, 2 max) Self-limited/transient process (constipation, muscle ache, etc) (1 point each , 2 max) Data - need 4 points Reviewed labs/imaging studies (1 points, 2 max) Independent review of imaging (EKG, xrays, etc) (2 points, 2 max) Discussed case with consult/other MD/RN (2 points, 2 max) High Risk - qualify if have one of the following: Severe exacerbation of acute problem, acute mental status change, IV narcotics , monitoring drug levels (vancomycin, INR, tacrolimus etc) Michael Champion M.D. Dec 02, 2019 19:19
[2019-12-02 20:00] VITALS: BP 138/76
[2019-12-02] MEDS: Bactrim-DS 1 tab ORAL SCH (20:53)
--- NOTE | 2019-12-02 23:00 | Consultation ---
DATE OF CONSULTATION: 12/02/2019 CONSULTING PHYSICIAN: Jonathan Brewer MD. REFERRING PHYSICIAN: Michael Champion MD. REASON FOR CONSULTATION: Evaluation of gross hematuria. HISTORY OF PRESENT ILLNESS: This 74-year-old male who came to the emergency room because of a syncopal episode. He was noted to have a Card catheter with gross hematuria. Urology evaluation was requested. In looking through the chart, apparently, the patient had surgery at [facility] yesterday which appeared to be TURP and his Card catheter was removed and he was not able to urinate and a Card catheter was reinserted from what he is reporting, although he is overall a very poor historian. PAST MEDICAL HISTORY: Significant for history of BPH, history of hypertension, and history of postherpetic neuralgia. PAST SURGICAL HISTORY: Apparently, he has had previous TURP. MEDICATIONS: Current medications here in the hospital, the patient is on Norvasc, vitamin D, , Cardura, Flonase, Colace, Neurontin, Protonix, Elavil, Zofran, Tylenol, morphine, and hydralazine. ALLERGIES: To aspirin. SOCIAL HISTORY: He is currently nonsmoker. FAMILY HISTORY: Noncontributory. REVIEW OF SYSTEMS: As above. Again, recent syncopal episode. PHYSICAL EXAMINATION: GENERAL: Elderly male, in no acute distress. VITAL SIGNS: Temperature is 97.8, blood pressure /84, pulse 69, respirations 16. HEENT: Normocephalic. NECK: Supple. ABDOMEN: Soft. GENITOURINARY: Reveals 16-Argentine Card catheter in place. Urine is grossly bloody. LABORATORY DATA: White count 10.3, hemoglobin 13.8, and platelets 195,000. BUN is 9, creatinine 1.1. INR is 1.0. DIAGNOSTIC IMAGING STUDIES: The patient had a chest x-ray and a head CT, which was reviewed. IMPRESSION: 1. Gross hematuria. 2. BPH history. 3. Urinary retention. 4. Rule out neurogenic bladder. 5. Urethral stenosis. PLAN AND DISCUSSION: The patient was evaluated at bedside. I attempted to hand irrigate the 16-Argentine Card catheter. There were copious clots and there was some resistance to irrigation as such the Card was removed. I gently dilated the urethra, placed a 24-Argentine 3-way catheter and I was able to irrigate out more clots until the urine became relatively clear. At this point, the Card was placed on traction and continuous bladder irrigation with normal saline was started. I assume he is bleeding from his prostatic bed because of the recent surgery. I would keep the patient on traction and CBI for now. He will be monitored. His H and H is stable so far. He should not be on any anticoagulants. I will also add prophylactic antibiotics as well as finasteride, and he can have a voiding trial at a later time when he is more medically stabilized and his urine has cleared up. Thank you, Dr. Champion, for asking me to see this patient in consultation. Jonathan Brewer M.D. DR: SHILPI JOB#: [id number] CC:
[2019-12-03] VITALS: BP 157/86
--- NOTE | 2019-12-03 00:15 | Consultation ---
DATE OF CONSULTATION: 12/02/2019 CONSULTING PHYSICIAN: Kevin Ramirez M.D. REFERRING PHYSICIAN: Michael Champion M.D. REASON FOR REFERRAL: Syncope. HISTORY OF PRESENT ILLNESS: This is a 74-year-old gentleman with history of multiple medical problems as delineated below. The patient was just recently hospitalized and discharged from [facility]. He underwent a TURP yesterday by at [facility] and afterwards was discharged. This morning when he was tried being discharged, he was not able to urinate, so Card catheter that had been removed was replaced. He was discharged home. Apparently, he came home, had the table to sit and his thinks he got up and he fainted, he landed on the floor. He was reportedly initially when he presented to emergency medical services, apparently was hypotensive initially, but apparently that resolved. The details of that information is not known. This is the information that was sent by the emergency room physician. Nevertheless, the patient was admitted to the hospital because of further workup. Further information from the patient and from the son. The patient does not have any chest pain. Does not have any shortness of breath. There is no PND, although he likes to sleep in his upright position because of shortness of breath or choking sensation. He does admit to being lightheaded today when he stood up. He has had occasional palpitations. PAST MEDICAL HISTORY: His past medical history is obtained from review at [facility] connected to [facility]. He has a history of anemia dating back to 05/06/2018. He has anxiety, benign prostatic hypertrophy, hepatocellular carcinoma/CONOR, elevated liver enzymes, erectile dysfunction, history of blood transfusion, hypertension, neuroendocrine tumor, osteoarthritis, osteoporosis, postoperative nausea and vomiting, postherpetic neuralgia, renal insufficiency, status post laparoscopic cholecystectomy, single kidney sludge in the gallbladder, shingles in 2013, has had 2 TURPs for his benign prostatic hypertrophy. He has a history of hypertension that is controlled with 10 mg of amlodipine, alcohol abuse, still occasionally drinks beer up to 4 drinks per day. He has had a history of alcohol abuse as mentioned, history of hyponatremia secondary to alcohol abuse apparently resolved, history of vitamin D deficiency, osteoporosis. He had NET of the gastrum, status post resection and radiation therapy, on oral chemotherapy capecitabine and Temodar. His postherpetic neuralgia is being treated with gabapentin and amitriptyline. There is no history of coronary artery disease or cardiac arrhythmia. No valvular heart disease or peripheral vascular disease according to the chart. He is allergic to aspirin and shellfish. He actually gets pre-treated for any contrast CT per son. He does have also history of sleep apnea. He just recently obtained a CPAP, but has not been using it yet. PAST SURGICAL HISTORY: Has abdominal surgery related to neuroendocrine cancer, history of appendectomy, cholecystectomy, neuroendocrine tumor resection was in 2011, partial gastrectomy was in 2011, transurethral resection of prostate in 2001 at [facility]. MEDICATIONS: As listed. SOCIAL HISTORY: He does not smoke anymore. He does drink alcoholic beverages intermittently. He is on medications to help him quit alcohol according to his son. REVIEW OF SYSTEMS: GASTROINTESTINAL: He has had no nausea, vomiting, or diarrhea. No bloody or black stools. GENITOURINARY: As mentioned above, TURP. PULMONARY: Negative for coughing or wheezing. CONSTITUTIONAL: Negative. NEUROLOGICAL: As mentioned in HPI. CARDIAC: As mentioned in HPI. PHYSICAL EXAMINATION: GENERAL: Shows to be an elderly gentleman, in no respiratory distress. VITAL SIGNS: Blood pressure today anywhere between 144/70 to 160/84, heart rate of 60 to 69, temperature 97.8. NECK: No jugular venous distention. No abdominojugular reflux noted. LUNGS: Clear to auscultation and percussion. CARDIAC: S1 is normal. S2 is normal. Regular rate and rhythm. No heaves, thrills, or gallops was noted. ABDOMEN: Soft and nontender. Positive bowel sounds. EXTREMITY: No edema. He does have a Card catheter in place. LABORATORY VALUES: His electrocardiogram that was performed in the emergency room shows sinus rhythm with no ST or T-wave abnormalities on the EKG. His telemetry data so far shows sinus rhythm. His white count of 10.3, hemoglobin 13.8, and platelet count 195. Sodium is 132, potassium 2.7, chloride 97, bicarb 26, BUN of 9, creatinine 1.1, and glucose of 120. Troponin 0.02. ProBNP is only 157. Albumin of 3.2. Lipase of 158. Coags of 1, INR 1, PTT of 25. COVID SARS testing performed in the emergency room was negative in rapid. ASSESSMENT AND PLAN: 1. Syncope, status post transurethral resection of prostate yesterday. 2. History of hypertension. 3. History of alcohol abuse. 4. History of hyponatremia, felt to be secondary to alcohol abuse. 5. History of NET of the gastrum , status post resection and radiation therapy. 6. Postherpetic neuralgia. Dr. Champion, this patient was seen in cardiac consultation. The patient's description provided by the family members with him standing and passing out. It is likely that this may be just orthostatic hypotension, although his blood pressure improved quickly when he did arrive in the emergency room. Nevertheless, I think he should be monitored on the floor. He will be on telemetry overnight. Serial enzymes will be checked, although he denies any chest pain. He has had a previous echocardiogram back in 2018. The echocardiogram will be repeated as a matter of routine. Orthostatic vitals will be performed and his blood pressure medications may need to be adjusted depending on his orthostatics. I have spent some time obtaining his records from [facility] through [facility] and I have addended that as a part of a separate note in this chart for other physicians to be able to access as well. I will follow the patient along with you. Kevin Ramirez M.D. DR: ÁNGEL JOB#: [id number] CC:
[2019-12-03 04:00] VITALS: BP 107/68
[2019-12-03 07:13] LABS: BASOPHILS % (AUTO) 0.6 % (0.0-2.0); EOSINOPHILS % (AUTO) 0.3 % (0.0-3.0); HEMATOCRIT 39.7 % (42.0-52.0); HEMOGLOBIN 13.6 G/DL (14.2-18.0); LYMPHOCYTES % (AUTO) 14.1 % (20.0-45.0); MEAN CORPUSCULAR VOLUME 105 FL (80-99); MONOCYTES % (AUTO) 7.9 % (1.0-10.0); NEUTROPHILS % (AUTO) 77.1 % (45.0-75.0); PLATELET COUNT 191 K/UL (150-450); RED BLOOD COUNT 3.79 M/UL (4.70-6.10); RED CELL DISTRIBUTION WIDTH 13.9 % (11.6-14.8); WHITE BLOOD COUNT 8.1 K/UL (4.8-10.8)
[2019-12-03 07:16] LABS: ALANINE AMINOTRANSFERASE 23 U/L (12-78); ALBUMIN 3.3 G/DL (3.4-5.0); ALBUMIN/GLOBULIN RATIO 0.9 (1.0-2.7); ALKALINE PHOSPHATASE 59 U/L (46-116); ANION GAP 10 mmol/L (5-15); ASPARTATE AMINO TRANSFERASE 23 U/L (15-37); BILIRUBIN,TOTAL 1.1 MG/DL (0.2-1.0); BLOOD UREA NITROGEN 9 mg/dL (7-18); CALCIUM 8.5 MG/DL (8.5-10.1); CARBON DIOXIDE 26 MMOL/L (21-32); CHLORIDE 103 MMOL/L (98-107); CREATININE 0.9 MG/DL (0.55-1.30); PHOSPHORUS 3.7 MG/DL (2.5-4.9); POTASSIUM 3.6 MMOL/L (3.5-5.1); SODIUM 139 MMOL/L (136-145)
[2019-12-03 07:17] LABS: BILIRUBIN,DIRECT 0.2 MG/DL (0.0-0.3)
--- NOTE | 2019-12-03 07:55 | Urology Progress Note ---
Assessment/Plan Assessment/Plan: 1. Gross hematuria, improving. 2. BPH history. 3. Urinary retention. 4. Rule out neurogenic bladder. 5. Urethral stenosis. monitor clinically maintain current martinez, placed 12/01 hand irrigated, no sig clots release martinez traction slowly wean off CBI on abx consider holding Elavil (can cause urinary retention) voiding trial later Subjective Allergies: Coded Allergies: ASPIRIN (Verified Allergy, Unknown, 12/02/19) FISH CONTAINING PRODUCTS (Verified Allergy, Unknown, 12/02/19) SHELLFISH DERIVED (Verified Allergy, Unknown, 12/03/19) Subjective all noted, feels fair on martinez traction and CBI running overnight Objective Last 24 Hour Vital Signs Date Time Temp Pulse Resp B/P (MAP) Pulse Ox O2 Delivery O2 Flow Rate FiO2 12/03/19 04:00 64 12/03/19 04:00 97.7 64 16 107/68 (81) 96 12/03/19 00:00 67 12/03/19 00:00 98.8 81 14 157/86 (109) 97 12/03/19 00:00 67 88 94 12/02/19 21:00 Room Air 12/02/19 20:04 Room Air 12/02/19 20:00 77 12/02/19 20:00 99.0 77 16 138/76 (96) 97 12/02/19 16:00 71 12/02/19 15:18 97.8 69 16 160/84 98 Room Air 12/02/19 12:43 98.0 61 18 158/76 98 Room Air 12/02/19 12:27 98.2 60 18 144/70 (94) 98 Room Air Intake and Output 12/02/19 12/03/19 19:00 07:00 Intake Total 1240 ml 3300 ml Output Total 1900 ml 7310 ml Balance -660 ml -4010 ml Intake Oral 240 ml 300 ml IV Total 1000 ml Other 3000 ml Output Urine Total 1900 ml 7310 ml Microbiology Date/Time Source Procedure Growth Status 12/02/19 12:00 Nasopharynx SARS-CoV-2 RdRp Gene Assay - Final Complete Current Medications Medications (Trade) Dose Ordered Sig/Mala Route PRN Reason Start Time Stop Time Status Last Admin Dose Admin Acetaminophen (Tylenol) 650 mg Q6H PRN ORAL Mild Pain (Pain Scale 1-3) 12/02/19 18:00 10/1/20 17:59 Acetaminophen/ Hydrocodone Bitart ([place] 5/325) 1 tab Q6H PRN ORAL Moderate Breakthru Pain (5-7) 12/02/19 18:00 12/09/19 17:59 Amitriptyline HCl (Elavil) 50 mg BEDTIME ORAL 12/02/19 21:00 01/01/20 20:59 12/02/19 20:53 Amlodipine Besylate (Norvasc) 10 mg DAILY ORAL 12/03/19 09:00 01/02/20 08:59 Clobetasol Propionate (Temovate) 1 applic TWICE A DAY TOPIC 12/03/19 09:00 03/02/20 08:59 Doxazosin Mesylate (Cardura) 4 mg DAILY ORAL 12/03/19 09:00 01/02/20 08:59 Finasteride (Proscar) 5 mg QHS ORAL 12/02/19 21:00 03/01/20 20:59 12/02/19 20:53 Fluticasone Propionate (Flonase) 2 spray DAILY NASAL 12/03/19 09:00 01/02/20 08:59 Folic Acid (Folate) 1 mg DAILY ORAL 12/03/19 09:00 01/02/20 08:59 Gabapentin (Neurontin) 600 mg THREE TIMES A DAY ORAL 12/03/19 09:00 01/02/20 08:59 Hydralazine HCl (Apresoline) 10 mg Q6H PRN ORAL For High Blood Pressure 12/02/19 18:00 03/01/20 17:59 Morphine Sulfate (Morphine Sulfate) 2 mg Q3H PRN IVP Severe Pain (Pain Scale 7-10) 12/02/19 18:00 12/09/19 17:59 Multivitamins Therapeutic (Therapeutic Multivitamin) 1 ea DAILY ORAL 12/03/19 09:00 01/02/20 08:59 Non-Formulary Medication (Non-Formulary Med) 1 ea DAILY ORAL 12/03/19 09:00 01/02/20 08:59 UNV Ondansetron HCl (Zofran) 8 mg Q8H PRN ORAL Nausea & Vomiting 12/02/19 18:15 01/01/20 18:14 Pantoprazole (Protonix) 40 mg DAILY ORAL 12/03/19 09:00 01/02/20 08:59 Thiamine HCl (Vitamin B1) 100 mg DAILY ORAL 12/03/19 09:00 01/02/20 08:59 Trimethoprim/ Sulfamethoxazole (Bactrim-DS) 1 tab Q12HR ORAL 12/02/19 21:00 12/09/19 20:59 12/02/19 20:53 Vitamin D (Vitamin D) 400 intlu DAILY ORAL 12/03/19 09:00 01/02/20 08:59 Laboratory Tests 12/02/19 12:45: White Blood Count 10.3, Red Blood Count 3.91L, Hemoglobin 13.8L, Hematocrit 41.2L, Mean Corpuscular Volume 105H, Mean Corpuscular Hemoglobin 35.3H, Mean Corpuscular Hemoglobin Concent 33.5, Red Cell Distribution Width 14.1, Platelet Count 195, Mean Platelet Volume 6.4L, Neutrophils (%) (Auto) 83.2H, Lymphocytes (%) (Auto) 9.0L, Monocytes (%) (Auto) 7.4, Eosinophils (%) (Auto) 0.1, Basophils (%) (Auto) 0.4, Prothrombin Time 11.1, Prothromb Time International Ratio 1.0, Activated Partial Thromboplast Time 25, Sodium Level 132L, Potassium Level 3.7, Chloride Level 99, Carbon Dioxide Level 26, Anion Gap 7, Blood Urea Nitrogen 9, Creatinine 1.1, Estimat Glomerular Filtration Rate > 60, Glucose Level 120H, Calcium Level 8.4L, Total Bilirubin 0.9, Aspartate Amino Transf (AST /SGOT) 24, Alanine Aminotransferase (ALT/SGPT) 21, Alkaline Phosphatase 55, Troponin I 0.002, Pro-B-Type Natriuretic Peptide 157H, Total Protein 6.9, Albumin 3.2L, Globulin 3.7, Albumin/Globulin Ratio 0.9L, Lipase 158 12/03/19 04:00: White Blood Count 8.1, Red Blood Count 3.79L, Hemoglobin 13.6L, Hematocrit 39.7L , Mean Corpuscular Volume 105H, Mean Corpuscular Hemoglobin 36.0H, Mean Corpuscular Hemoglobin Concent 34.3, Red Cell Distribution Width 13.9, Platelet Count 191, Mean Platelet Volume 6.6, Neutrophils (%) (Auto) 77.1H, Lymphocytes ( %) (Auto) 14.1L, Monocytes (%) (Auto) 7.9, Eosinophils (%) (Auto) 0.3, Basophils (%) (Auto) 0.6, Sodium Level 139, Potassium Level 3.6, Chloride Level 103, Carbon Dioxide Level 26, Anion Gap 10, Blood Urea Nitrogen 9, Creatinine 0.9, Estimat Glomerular Filtration Rate > 60, Glucose Level 103, Calcium Level 8.5, Total Bilirubin 1.1H, Aspartate Amino Transf (AST/SGOT) 23, Alanine Aminotransferase (ALT/SGPT) 23, Alkaline Phosphatase 59, Troponin I 0.000, Total Protein 7.1, Albumin 3.3L, Globulin 3.8, Albumin/Globulin Ratio 0.9L, Phosphorus Level 3.7, Magnesium Level 1.8, Direct Bilirubin 0.2 Height (Feet): 5 Height (Inches): 8.00 Weight (Pounds): 170 Objective exam stable urine slightly blood-tinged/brandee with traction and CBI Jonathan Brewer MD Dec 03, 2019 07:55
[2019-12-03 08:00] VITALS: BP 103/61
[2019-12-03] MEDS: Bactrim-DS 1 tab ORAL SCH ×2 (08:30→21:38)
[2019-12-03] MEDS: Clobetasol Cream 0.05% 15gm TOPIC SCH ×2 (08:41→17:03)
[2019-12-03] MEDS ORDERED: Vitamin D 400 INTLU TAB ORAL SCH (09:00)
[2019-12-03] MEDS ORDERED: Doxazosin 4mg tab ORAL SCH (09:00)
[2019-12-03] MEDS ORDERED: Multivitamin w/Minerals tab ORAL SCH (09:00)
[2019-12-03] MEDS ORDERED: Flonase Nasal Inhaler 16gm NASAL SCH (09:00)
[2019-12-03] MEDS ORDERED: Thiamine 100mg tab ORAL SCH (09:00)
[2019-12-03 11:12] VITALS: BP 131/70
--- NOTE | 2019-12-03 13:00 | Consultation ---
DATE OF CONSULTATION: 12/03/2019 CHIEF COMPLAINT: Anemia. HISTORY OF PRESENT ILLNESS: This is a 74-year-old male with numerous medical problems, which I will dictate in a second had a syncopal episode while he was in his kitchen, was brought by the family. The patient had a Card catheter which was filled with blood. Apparently, the patient had a recent TURP surgery. PAST MEDICAL HISTORY: Significant for: 1. History of anemia requiring blood transfusions. 2. Anxiety. 3. BPH. 4. History of hepatocellular carcinoma. 5. Erectile dysfunction. 6. Hypertension. 7. Neuroendocrine tumor. 8. Osteoarthritis. 9. Osteoporosis. PAST SURGICAL HISTORY: 1. Neuroendocrine tumor removal. 2. Appendectomy. 3. Cholecystectomy. 4. Partial gastrectomy. 5. TURP. ALLERGIES: No known allergies. MEDICATIONS: Please see medication reconciliation list. SOCIAL HISTORY: The patient does not smoke, drink, or use any drugs. REVIEW OF SYSTEMS: A 10-point review of systems was performed and pertinent positives in HPI. PHYSICAL EXAMINATION: VITAL SIGNS: Temperature 99.3, pulse 65, respirations 18, blood pressure is 131/70. HEENT: Normocephalic and atraumatic. Sclerae anicteric. NECK: Supple. No evidence of obvious lymphadenopathy. CARDIOVASCULAR: Regular rate and rhythm. Plus S1, S2. LUNGS: Decreased breath sounds bilaterally diffusely on the supine exam. ABDOMEN: Soft. Bowel sounds are present. Multiple scars from prior abdominal surgeries. No rebound. No guarding. No peritoneal sign. EXTREMITIES: No cyanosis. No clubbing. No edema. LABORATORY DATA: White count is 8, hemoglobin 13, hematocrit 39, platelets of 191. ASSESSMENT AND PLAN: This is a 74-year-old male with a syncopal episode, hematuria, recent TURP surgery. No evidence of any active GI bleeding at this time. The patient currently on diet and eating well. Plan to follow up with the Urology. Monitor hemoglobin and hematocrit, transfuse as needed. Follow with Cardiology for workup of syncopal episode. The patient apparently been followed at [facility] for his liver cancer and other gastrointestinal issues which the patient needs to follow after discharge. Cooper Vosoghi, M.D. DR: Alex JOB#: [id number] CC:
[2019-12-03] MEDS ORDERED: Sterile Water Irrig 1000ml IRRIG ONE (13:48)
[2019-12-03] MEDS ORDERED: NS Irrig 4000ml IRRIG ONE (13:48)
--- NOTE | 2019-12-03 13:58 | Internal Med Progress Note ---
Subjective Physician Name Michael Champion Attending Physician Michael Champion M.D. Current Medications Medications (Trade) Dose Ordered Sig/Mala Route PRN Reason Start Time Stop Time Status Last Admin Dose Admin Acetaminophen (Tylenol) 650 mg Q6H PRN ORAL Mild Pain (Pain Scale 1-3) 12/02/19 18:00 01/01/20 17:59 Acetaminophen/ Hydrocodone Bitart ([place] 5/325) 1 tab Q6H PRN ORAL Moderate Breakthru Pain (5-7) 12/02/19 18:00 12/09/19 17:59 Amitriptyline HCl (Elavil) 50 mg BEDTIME ORAL 12/02/19 21:00 01/01/20 20:59 12/02/19 20:53 Amlodipine Besylate (Norvasc) 10 mg DAILY ORAL 12/03/19 09:00 01/02/20 08:59 Clobetasol Propionate (Temovate) 1 applic TWICE A DAY TOPIC 12/03/19 09:00 03/02/20 08:59 Doxazosin Mesylate (Cardura) 4 mg DAILY ORAL 12/03/19 09:00 01/02/20 08:59 Finasteride (Proscar) 5 mg QHS ORAL 12/02/19 21:00 03/01/20 20:59 12/02/19 20:53 Fluticasone Propionate (Flonase) 2 spray DAILY NASAL 12/03/19 09:00 01/02/20 08:59 12/03/19 08:42 Folic Acid (Folate) 1 mg DAILY ORAL 12/03/19 09:00 01/02/20 08:59 12/03/19 08:29 Gabapentin (Neurontin) 600 mg THREE TIMES A DAY ORAL 12/03/19 09:00 01/02/20 08:59 12/03/19 12:39 Hydralazine HCl (Apresoline) 10 mg Q6H PRN ORAL For High Blood Pressure 12/02/19 18:00 03/01/20 17:59 Morphine Sulfate (Morphine Sulfate) 2 mg Q3H PRN IVP Severe Pain (Pain Scale 7-10) 12/02/19 18:00 12/09/19 17:59 Multivitamins Therapeutic (Therapeutic Multivitamin) 1 ea DAILY ORAL 12/03/19 09:00 01/02/20 08:59 12/03/19 08:30 Non-Formulary Medication (Non-Formulary Med) 1 ea DAILY ORAL 12/03/19 09:00 01/02/20 08:59 UNV Ondansetron HCl (Zofran) 8 mg Q8H PRN ORAL Nausea & Vomiting 12/02/19 18:15 01/01/20 18:14 Pantoprazole (Protonix) 40 mg DAILY ORAL 12/03/19 09:00 01/02/20 08:59 12/03/19 08:30 Thiamine HCl (Vitamin B1) 100 mg DAILY ORAL 12/03/19 09:00 01/02/20 08:59 12/03/19 08:30 Trimethoprim/ Sulfamethoxazole (Bactrim-DS) 1 tab Q12HR ORAL 12/02/19 21:00 12/09/19 20:59 12/03/19 08:30 Vitamin D (Vitamin D) 400 intlu DAILY ORAL 12/03/19 09:00 01/02/20 08:59 12/03/19 08:30 Allergies: Coded Allergies: ASPIRIN (Verified Allergy, Unknown, 12/02/19) FISH CONTAINING PRODUCTS (Verified Allergy, Unknown, 12/02/19) SHELLFISH DERIVED (Verified Allergy, Unknown, 12/03/19) ROS Limited/Unobtainable: No HEENT: Denies: no symptoms, eye pain, blurred vision, tearing, double vision, ear pain, ear discharge, nose pain, nose congestion, throat pain, throat swelling, mouth pain, mouth swelling, other Cardiovascular: Denies: no symptoms, chest pain, edema, irregular heart rate, lightheadedness, palpitations, syncope, other Respiratory: Denies: no symptoms, cough, orthopnea, shortness of breath, SOB with excertion, SOB at rest, sputum, stridor, wheezing, other Gastrointestinal/Abdominal: Denies: no symptoms, abdomen distended, abdominal pain, black stools, tarry stools, blood in stool, constipated, diarrhea, difficulty swallowing, nausea, poor appetite, poor fluid intake, rectal bleeding , vomiting, other Genitourinary: Denies: no symptoms, burning, discharge, frequency, flank pain, hematuria, incontinence, pain, urgency, other Subjective feeling better today urine clearing up hemoglobin stable Objective Last Vital Signs Date Time Temp Pulse Resp B/P (MAP) Pulse Ox O2 Delivery O2 Flow Rate FiO2 12/03/19 11:12 99.3 65 18 131/70 (90) 98 12/03/19 08:15 Room Air General Appearance: no apparent distress, alert EENT: PERRL/EOMI Neck: non-tender, normal alignment Cardiovascular: normal peripheral pulses, normal rate, regular rhythm Respiratory/Chest: chest wall non-tender, lungs clear Abdomen: normal bowel sounds, non tender, soft Extremities: normal range of motion, non-tender Neurologic: alert, oriented x 3 Laboratory Tests Test 12/03/19 04:00 White Blood Count 8.1 K/UL (4.8-10.8) Red Blood Count 3.79 M/UL (4.70-6.10) L Hemoglobin 13.6 G/DL (14.2-18.0) L Hematocrit 39.7 % (42.0-52.0) L Mean Corpuscular Volume 105 FL (80-99) H Mean Corpuscular Hemoglobin 36.0 PG (27.0-31.0) H Mean Corpuscular Hemoglobin Concent 34.3 G/DL (32.0-36.0) Red Cell Distribution Width 13.9 % (11.6-14.8) Platelet Count 191 K/UL (150-450) Mean Platelet Volume 6.6 FL (6.5-10.1) Neutrophils (%) (Auto) 77.1 % (45.0-75.0) H Lymphocytes (%) (Auto) 14.1 % (20.0-45.0) L Monocytes (%) (Auto) 7.9 % (1.0-10.0) Eosinophils (%) (Auto) 0.3 % (0.0-3.0) Basophils (%) (Auto) 0.6 % (0.0-2.0) Sodium Level 139 MMOL/L (136-145) Potassium Level 3.6 MMOL/L (3.5-5.1) Chloride Level 103 MMOL/L (98-107) Carbon Dioxide Level 26 MMOL/L (21-32) Anion Gap 10 mmol/L (5-15) Blood Urea Nitrogen 9 mg/dL (7-18) Creatinine 0.9 MG/DL (0.55-1.30) Estimat Glomerular Filtration Rate > 60 mL/min (>60) Glucose Level 103 MG/DL (74-106) Calcium Level 8.5 MG/DL (8.5-10.1) Phosphorus Level 3.7 MG/DL (2.5-4.9) Magnesium Level 1.8 MG/DL (1.8-2.4) Total Bilirubin 1.1 MG/DL (0.2-1.0) H Direct Bilirubin 0.2 MG/DL (0.0-0.3) Aspartate Amino Transf (AST/SGOT) 23 U/L (15-37) Alanine Aminotransferase (ALT/SGPT) 23 U/L (12-78) Alkaline Phosphatase 59 U/L (46-116) Troponin I 0.000 ng/mL (0.000-0.056) Total Protein 7.1 G/DL (6.4-8.2) Albumin 3.3 G/DL (3.4-5.0) L Globulin 3.8 g/dL Albumin/Globulin Ratio 0.9 (1.0-2.7) L Microbiology Date/Time Source Procedure Growth Status 12/02/19 12:00 Nasopharynx SARS-CoV-2 RdRp Gene Assay - Final Complete Intake and Output 12/02/19 12/03/19 19:00 07:00 Intake Total 1240 ml 3500 ml Output Total 1900 ml 7530 ml Balance -660 ml -4030 ml Intake Oral 240 ml 500 ml IV Total 1000 ml Other 3000 ml Output Urine Total 1900 ml 7530 ml Assessment/Plan Assessment/Plan #syncope- likely vasovagal #hematuria # BPHs/p TURP x2with nocturia-doxazosin 4 mg daily, pending repeat TURP # HTN - amlodipine 10 mg daily # Alcohol abuse - still occasional beer, last drink 1 week ago, per typically drinking 2-3 beers/day, no longer taking naltrexone per Dr. 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 Dec 03, 2019 13:58
[2019-12-03 16:00] VITALS: BP 140/73
--- NOTE | 2019-12-03 16:54 | Diagnostic Imaging Report ---
Indication: Syncope Technique: Grayscale and duplex images of the extracranial carotid circulation were obtained Comparison: None Findings: Bilaterally, grayscale and duplex images demonstrate atherosclerotic plaquing resulting in less than 50% diameter narrowing. Normal Doppler flow velocities and waveforms. Neither vertebral artery couldn't be visualized convincingly Impression: Less than 50% diameter narrowing of the bilateral internal carotid arteries proximally Nonvisualized vertebral arteries bilaterally. Significance of this is uncertain. Could be related to technical factors or could indicate occlusion, either acquired or developmental. If clinically indicated, MR angiography or CT angiography may be useful to clarify
[2019-12-03 20:00] VITALS: BP_SYST 136; BP_SYST 96; BP_DIAS 56; BP_DIAS 57
--- NOTE | 2019-12-03 21:14 | Cardiology Progress Note ---
Assessment/Plan Assessment/Plan 1. Syncope, status post transurethral resection of prostate yesterday. 2. History of hypertension. 3. History of alcohol abuse. 4. History of hyponatremia, felt to be secondary to alcohol abuse. 5. History of NET of the gastrum , status post resection and radiation therapy. 6. Postherpetic neuralgia. 7. Orthostatic hypotension he had asoem drop in bp when the y did the orthstatic today sbp nwo in the 96 echo note tele sinus ekg sinus labs ok trop neg ivf to nite hoel bp med if sbp less thatn 110 Subjective Cardiovascular: Denies: chest pain, lightheadedness, palpitations Respiratory: Denies: shortness of breath Gastrointestinal/Abdominal: Denies: abdominal pain Genitourinary: Denies: burning Objective Last 24 Hour Vital Signs Date Time Temp Pulse Resp B/P (MAP) Pulse Ox O2 Delivery O2 Flow Rate FiO2 12/03/19 20:00 98.2 108 20 136/57 (83) 94 12/03/19 20:00 97.5 97 20 96/56 (69) 98 12/03/19 20:00 115 12/03/19 16:37 69 12/03/19 16:00 98.8 70 20 140/73 (95) 98 12/03/19 16:00 111 12/03/19 12:00 74 12/03/19 11:12 99.3 65 18 131/70 (90) 98 12/03/19 11:00 65 88 90 12/03/19 08:33 89 103/61 12/03/19 08:15 Room Air 12/03/19 08:00 98.1 89 20 103/61 (75) 100 12/03/19 08:00 83 12/03/19 04:00 64 12/03/19 04:00 97.7 64 16 107/68 (81) 96 12/03/19 00:00 67 12/03/19 00:00 98.8 81 14 157/86 (109) 97 12/03/19 00:00 67 88 94 General Appearance: no apparent distress, alert Neck: supple Cardiovascular: normal rate Respiratory/Chest: lungs clear Abdomen: normal bowel sounds, non tender, soft Extremities: no swelling Intake and Output 12/02/19 12/03/19 19:00 07:00 Intake Total 1240 ml 3500 ml Output Total 1900 ml 7530 ml Balance -660 ml -4030 ml Intake Oral 240 ml 500 ml IV Total 1000 ml Other 3000 ml Output Urine Total 1900 ml 7530 ml Laboratory Tests Test 12/03/19 04:00 White Blood Count 8.1 K/UL (4.8-10.8) Red Blood Count 3.79 M/UL (4.70-6.10) L Hemoglobin 13.6 G/DL (14.2-18.0) L Hematocrit 39.7 % (42.0-52.0) L Mean Corpuscular Volume 105 FL (80-99) H Mean Corpuscular Hemoglobin 36.0 PG (27.0-31.0) H Mean Corpuscular Hemoglobin Concent 34.3 G/DL (32.0-36.0) Red Cell Distribution Width 13.9 % (11.6-14.8) Platelet Count 191 K/UL (150-450) Mean Platelet Volume 6.6 FL (6.5-10.1) Neutrophils (%) (Auto) 77.1 % (45.0-75.0) H Lymphocytes (%) (Auto) 14.1 % (20.0-45.0) L Monocytes (%) (Auto) 7.9 % (1.0-10.0) Eosinophils (%) (Auto) 0.3 % (0.0-3.0) Basophils (%) (Auto) 0.6 % (0.0-2.0) Sodium Level 139 MMOL/L (136-145) Potassium Level 3.6 MMOL/L (3.5-5.1) Chloride Level 103 MMOL/L (98-107) Carbon Dioxide Level 26 MMOL/L (21-32) Anion Gap 10 mmol/L (5-15) Blood Urea Nitrogen 9 mg/dL (7-18) Creatinine 0.9 MG/DL (0.55-1.30) Estimat Glomerular Filtration Rate > 60 mL/min (>60) Glucose Level 103 MG/DL (74-106) Calcium Level 8.5 MG/DL (8.5-10.1) Phosphorus Level 3.7 MG/DL (2.5-4.9) Magnesium Level 1.8 MG/DL (1.8-2.4) Total Bilirubin 1.1 MG/DL (0.2-1.0) H Direct Bilirubin 0.2 MG/DL (0.0-0.3) Aspartate Amino Transf (AST/SGOT) 23 U/L (15-37) Alanine Aminotransferase (ALT/SGPT) 23 U/L (12-78) Alkaline Phosphatase 59 U/L (46-116) Troponin I 0.000 ng/mL (0.000-0.056) Total Protein 7.1 G/DL (6.4-8.2) Albumin 3.3 G/DL (3.4-5.0) L Globulin 3.8 g/dL Albumin/Globulin Ratio 0.9 (1.0-2.7) L Microbiology Date/Time Source Procedure Growth Status 12/02/19 12:00 Nasopharynx SARS-CoV-2 RdRp Gene Assay - Final Complete Kevin Ramirez MD Dec 03, 2019 21:14
[2019-12-04] VITALS: BP 98/59
[2019-12-04] MEDS ORDERED: HydrALAZINE 10mg Tab ORAL PRN
[2019-12-04] MEDS ORDERED: HYDROcodone/Acetamin 5/325 tab ORAL PRN
[2019-12-04] MEDS ORDERED: Morphine Sulfate 2mg/ml Inj(IV/IM USE ONLY) IVP PRN
[2019-12-04 04:00] VITALS: BP 116/77
[2019-12-04 05:56] LABS: BASOPHILS % (AUTO) 1.3 % (0.0-2.0); HEMATOCRIT 41.3 % (42.0-52.0); HEMOGLOBIN 13.9 G/DL (14.2-18.0); LYMPHOCYTES % (AUTO) 18.2 % (20.0-45.0); MEAN CORPUSCULAR VOLUME 105 FL (80-99); MONOCYTES % (AUTO) 9.8 % (1.0-10.0); NEUTROPHILS % (AUTO) 69.8 % (45.0-75.0); PLATELET COUNT 166 K/UL (150-450); RED BLOOD COUNT 3.92 M/UL (4.70-6.10); RED CELL DISTRIBUTION WIDTH 13.8 % (11.6-14.8); WHITE BLOOD COUNT 7.7 K/UL (4.8-10.8)
[2019-12-04 06:12] LABS: ANION GAP 8 mmol/L (5-15); BLOOD UREA NITROGEN 7 mg/dL (7-18); CALCIUM 8.9 MG/DL (8.5-10.1); CARBON DIOXIDE 27 MMOL/L (21-32); CHLORIDE 104 MMOL/L (98-107); CREATININE 0.8 MG/DL (0.55-1.30); SODIUM 138 MMOL/L (136-145)
[2019-12-04 06:15] LABS: PHOSPHORUS 4.5 MG/DL (2.5-4.9)
[2019-12-04 08:00] VITALS: BP 115/69
--- NOTE | 2019-12-04 08:19 | Urology Progress Note ---
Assessment/Plan Assessment/Plan: 1. Gross hematuria, improving. 2. BPH history. 3. Urinary retention. 4. Rule out neurogenic bladder. 5. Urethral stenosis. monitor clinically maintain current martinez, placed 12/01 hand irrigated, no sig clots h/h, renal fxn stable stop CBI hand irrigate martinez PRN on abx, proscar consider holding Elavil (can cause urinary retention) voiding trial later Subjective Allergies: Coded Allergies: ASPIRIN (Verified Allergy, Unknown, 12/02/19) FISH CONTAINING PRODUCTS (Verified Allergy, Unknown, 12/02/19) SHELLFISH DERIVED (Verified Allergy, Unknown, 12/03/19) Subjective all noted, feels fair slow CBI running overnight Objective Last 24 Hour Vital Signs Date Time Temp Pulse Resp B/P (MAP) Pulse Ox O2 Delivery O2 Flow Rate FiO2 12/04/19 04:00 97.3 67 18 116/77 (90) 98 12/04/19 00:00 98.6 75 20 98/59 (72) 98 12/03/19 21:00 75 85 87 12/03/19 21:00 Room Air 12/03/19 20:00 98.2 108 20 136/57 (83) 94 12/03/19 20:00 97.5 97 20 96/56 (69) 98 12/03/19 20:00 115 12/03/19 16:37 69 12/03/19 16:00 98.8 70 20 140/73 (95) 98 12/03/19 16:00 111 12/03/19 12:00 74 12/03/19 11:12 99.3 65 18 131/70 (90) 98 12/03/19 11:00 65 88 90 12/03/19 08:33 89 103/61 Intake and Output 12/03/19 12/04/19 19:00 07:00 Intake Total 700 ml Output Total 2755 ml 750 ml Balance -2755 ml -50 ml IV Total 700 ml Output Urine Total 2755 ml 750 ml Microbiology Date/Time Source Procedure Growth Status 12/02/19 12:00 Nasopharynx SARS-CoV-2 RdRp Gene Assay - Final Complete Current Medications Medications (Trade) Dose Ordered Sig/Mala Route PRN Reason Start Time Stop Time Status Last Admin Dose Admin Acetaminophen (Tylenol) 650 mg Q6H PRN ORAL Mild Pain (Pain Scale 1-3) 12/04/19 00:00 01/01/20 17:59 Acetaminophen/ Hydrocodone Bitart ([place] 5/325) 1 tab Q6H PRN ORAL Moderate Breakthru Pain (5-7) 12/04/19 00:00 12/09/19 17:59 Amitriptyline HCl (Elavil) 50 mg BEDTIME ORAL 12/04/19 21:00 01/01/20 20:59 Amlodipine Besylate (Norvasc) 5 mg DAILY ORAL 12/04/19 09:00 01/03/20 08:59 Clobetasol Propionate (Temovate) 1 applic TWICE A DAY TOPIC 12/04/19 09:00 03/02/20 08:59 Doxazosin Mesylate (Cardura) 4 mg DAILY ORAL 12/04/19 09:00 01/02/20 08:59 Finasteride (Proscar) 5 mg QHS ORAL 12/04/19 21:00 03/01/20 20:59 Fluticasone Propionate (Flonase) 2 spray DAILY NASAL 12/04/19 09:00 01/02/20 08:59 Folic Acid (Folate) 1 mg DAILY ORAL 12/04/19 09:00 01/02/20 08:59 Gabapentin (Neurontin) 600 mg THREE TIMES A DAY ORAL 12/04/19 09:00 01/02/20 08:59 Hydralazine HCl (Apresoline) 10 mg Q6H PRN ORAL For High Blood Pressure 12/04/19 00:00 03/01/20 17:59 Morphine Sulfate (Morphine Sulfate) 2 mg Q3H PRN IVP Severe Pain (Pain Scale 7-10) 12/04/19 00:00 12/09/19 17:59 Multivitamins Therapeutic (Therapeutic Multivitamin) 1 ea DAILY ORAL 12/04/19 09:00 01/02/20 08:59 Non-Formulary Medication (Non-Formulary Med) 1 ea DAILY ORAL 12/04/19 09:00 01/02/20 08:59 UNV Ondansetron HCl (Zofran) 8 mg Q8H PRN ORAL Nausea & Vomiting 12/04/19 02:15 01/01/20 18:14 Pantoprazole (Protonix) 40 mg DAILY ORAL 12/04/19 09:00 01/02/20 08:59 Sodium Chloride 1,000 ml @ 100 mls/hr Q10H IV 12/03/19 23:45 01/02/20 21:19 Thiamine HCl (Vitamin B1) 100 mg DAILY ORAL 12/04/19 09:00 01/02/20 08:59 Trimethoprim/ Sulfamethoxazole (Bactrim-DS) 1 tab Q12HR ORAL 12/04/19 09:00 12/09/19 20:59 Vitamin D (Vitamin D) 400 intlu DAILY ORAL 12/04/19 09:00 01/02/20 08:59 Laboratory Tests 12/04/19 05:11: White Blood Count 7.7, Red Blood Count 3.92L, Hemoglobin 13.9L, Hematocrit 41.3L , Mean Corpuscular Volume 105H, Mean Corpuscular Hemoglobin 35.4H, Mean Corpuscular Hemoglobin Concent 33.6, Red Cell Distribution Width 13.8, Platelet Count 166, Mean Platelet Volume 6.5, Neutrophils (%) (Auto) 69.8, Lymphocytes (% ) (Auto) 18.2L, Monocytes (%) (Auto) 9.8, Eosinophils (%) (Auto) 1.0, Basophils (%) (Auto) 1.3, Sodium Level 138, Potassium Level 4.0, Chloride Level 104, Carbon Dioxide Level 27, Anion Gap 8, Blood Urea Nitrogen 7, Creatinine 0.8, Estimat Glomerular Filtration Rate > 60, Glucose Level 94, Calcium Level 8.9, Phosphorus Level 4.5, Magnesium Level 1.9 Height (Feet): 5 Height (Inches): 8.00 Weight (Pounds): 170 Objective exam stable urine slightly blood-tinged/brandee with slow CBI Jonathan Brewer MD Dec 04, 2019 08:19
[2019-12-04] MEDS: Doxazosin 4mg tab ORAL SCH (08:48)
[2019-12-04] MEDS: Thiamine 100mg tab ORAL SCH (08:48)
[2019-12-04] MEDS: Multivitamin w/Minerals tab ORAL SCH (08:48)
[2019-12-04] MEDS: Vitamin D 400 INTLU TAB ORAL SCH (08:48)
[2019-12-04] MEDS: Bactrim-DS 1 tab ORAL SCH ×2 (08:49→21:05)
[2019-12-04] MEDS: Clobetasol Cream 0.05% 15gm TOPIC SCH ×2 (08:54→18:00)
[2019-12-04] MEDS: Flonase Nasal Inhaler 16gm NASAL SCH (08:55)
--- NOTE | 2019-12-04 10:30 | Internal Med Progress Note ---
Subjective Physician Name Michael Champion Attending Physician Michael Champion M.D. Current Medications Medications (Trade) Dose Ordered Sig/Mala Route PRN Reason Start Time Stop Time Status Last Admin Dose Admin Acetaminophen (Tylenol) 650 mg Q6H PRN ORAL Mild Pain (Pain Scale 1-3) 12/04/19 00:00 01/01/20 17:59 Acetaminophen/ Hydrocodone Bitart ([place] 5/325) 1 tab Q6H PRN ORAL Moderate Breakthru Pain (5-7) 12/04/19 00:00 12/09/19 17:59 Amitriptyline HCl (Elavil) 50 mg BEDTIME ORAL 12/04/19 21:00 01/01/20 20:59 Amlodipine Besylate (Norvasc) 5 mg DAILY ORAL 12/04/19 09:00 01/03/20 08:59 12/04/19 08:49 Clobetasol Propionate (Temovate) 1 applic TWICE A DAY TOPIC 12/04/19 09:00 03/02/20 08:59 12/04/19 08:54 Doxazosin Mesylate (Cardura) 4 mg DAILY ORAL 12/04/19 09:00 01/02/20 08:59 12/04/19 08:48 Finasteride (Proscar) 5 mg QHS ORAL 12/04/19 21:00 03/01/20 20:59 Fluticasone Propionate (Flonase) 2 spray DAILY NASAL 12/04/19 09:00 01/02/20 08:59 12/04/19 08:55 Folic Acid (Folate) 1 mg DAILY ORAL 12/04/19 09:00 01/02/20 08:59 12/04/19 08:48 Gabapentin (Neurontin) 600 mg THREE TIMES A DAY ORAL 12/04/19 09:00 01/02/20 08:59 12/04/19 08:48 Hydralazine HCl (Apresoline) 10 mg Q6H PRN ORAL For High Blood Pressure 12/04/19 00:00 03/01/20 17:59 Morphine Sulfate (Morphine Sulfate) 2 mg Q3H PRN IVP Severe Pain (Pain Scale 7-10) 12/04/19 00:00 12/09/19 17:59 Multivitamins Therapeutic (Therapeutic Multivitamin) 1 ea DAILY ORAL 12/04/19 09:00 01/02/20 08:59 12/04/19 08:48 Non-Formulary Medication (Non-Formulary Med) 1 ea DAILY ORAL 12/04/19 09:00 01/02/20 08:59 UNV Ondansetron HCl (Zofran) 8 mg Q8H PRN ORAL Nausea & Vomiting 12/04/19 02:15 01/01/20 18:14 Pantoprazole (Protonix) 40 mg DAILY ORAL 12/04/19 09:00 01/02/20 08:59 12/04/19 08:47 Sodium Chloride 1,000 ml @ 100 mls/hr Q10H IV 12/03/19 23:45 01/02/20 21:19 12/04/19 08:53 Thiamine HCl (Vitamin B1) 100 mg DAILY ORAL 12/04/19 09:00 01/02/20 08:59 12/04/19 08:48 Trimethoprim/ Sulfamethoxazole (Bactrim-DS) 1 tab Q12HR ORAL 12/04/19 09:00 12/09/19 20:59 12/04/19 08:49 Vitamin D (Vitamin D) 400 intlu DAILY ORAL 12/04/19 09:00 01/02/20 08:59 12/04/19 08:48 Allergies: Coded Allergies: ASPIRIN (Verified Allergy, Unknown, 12/02/19) FISH CONTAINING PRODUCTS (Verified Allergy, Unknown, 12/02/19) SHELLFISH DERIVED (Verified Allergy, Unknown, 12/03/19) ROS Limited/Unobtainable: No Constitutional: Reports: weakness HEENT: Denies: no symptoms, eye pain, blurred vision, tearing, double vision, ear pain, ear discharge, nose pain, nose congestion, throat pain, throat swelling, mouth pain, mouth swelling, other Cardiovascular: Denies: no symptoms, chest pain, edema, irregular heart rate, lightheadedness, palpitations, syncope, other Respiratory: Denies: no symptoms, cough, orthopnea, shortness of breath, SOB with excertion, SOB at rest, sputum, stridor, wheezing, other Gastrointestinal/Abdominal: Denies: no symptoms, abdomen distended, abdominal pain, black stools, tarry stools, blood in stool, constipated, diarrhea, difficulty swallowing, nausea, poor appetite, poor fluid intake, rectal bleeding , vomiting, other Genitourinary: Denies: no symptoms, burning, discharge, frequency, flank pain, hematuria, incontinence, pain, urgency, other Neurologic/Psychiatric: Denies: no symptoms, anxiety, depressed, emotional problems, headache, numbness, paresthesia, pre-existing deficit, seizure, tingling, tremors, weakness, other Subjective feeling better today urine clearing up hemoglobin stable Objective Last Vital Signs Date Time Temp Pulse Resp B/P (MAP) Pulse Ox O2 Delivery O2 Flow Rate FiO2 12/04/19 08:49 67 116/77 12/04/19 08:40 Room Air 12/04/19 08:00 98.0 19 98 Laboratory Tests Test 12/04/19 05:11 White Blood Count 7.7 K/UL (4.8-10.8) Red Blood Count 3.92 M/UL (4.70-6.10) L Hemoglobin 13.9 G/DL (14.2-18.0) L Hematocrit 41.3 % (42.0-52.0) L Mean Corpuscular Volume 105 FL (80-99) H Mean Corpuscular Hemoglobin 35.4 PG (27.0-31.0) H Mean Corpuscular Hemoglobin Concent 33.6 G/DL (32.0-36.0) Red Cell Distribution Width 13.8 % (11.6-14.8) Platelet Count 166 K/UL (150-450) Mean Platelet Volume 6.5 FL (6.5-10.1) Neutrophils (%) (Auto) 69.8 % (45.0-75.0) Lymphocytes (%) (Auto) 18.2 % (20.0-45.0) L Monocytes (%) (Auto) 9.8 % (1.0-10.0) Eosinophils (%) (Auto) 1.0 % (0.0-3.0) Basophils (%) (Auto) 1.3 % (0.0-2.0) Sodium Level 138 MMOL/L (136-145) Potassium Level 4.0 MMOL/L (3.5-5.1) Chloride Level 104 MMOL/L (98-107) Carbon Dioxide Level 27 MMOL/L (21-32) Anion Gap 8 mmol/L (5-15) Blood Urea Nitrogen 7 mg/dL (7-18) Creatinine 0.8 MG/DL (0.55-1.30) Estimat Glomerular Filtration Rate > 60 mL/min (>60) Glucose Level 94 MG/DL (74-106) Calcium Level 8.9 MG/DL (8.5-10.1) Phosphorus Level 4.5 MG/DL (2.5-4.9) Magnesium Level 1.9 MG/DL (1.8-2.4) Microbiology Date/Time Source Procedure Growth Status 12/02/19 12:00 Nasopharynx SARS-CoV-2 RdRp Gene Assay - Final Complete Intake and Output 12/03/19 12/04/19 19:00 07:00 Intake Total 800 ml Output Total 2755 ml 750 ml Balance -2755 ml 50 ml IV Total 800 ml Output Urine Total 2755 ml 750 ml Assessment/Plan Assessment/Plan #syncope- likely vasovagal #hematuria # BPHs/p TURP x2with nocturia-doxazosin 4 mg daily, pending repeat TURP # HTN - amlodipine 10 mg daily # Alcohol abuse - still occasional beer, last drink 1 week ago, per typically drinking 2-3 beers/day, no longer taking naltrexone per Dr. 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 Dec 04, 2019 10:30
[2019-12-04 11:42] VITALS: BP 91/58
--- NOTE | 2019-12-04 12:42 | General Progress Note ---
Assessment/Plan Assessment/Plan: 1. History of anemia requiring blood transfusions. 2. Anxiety. 3. BPH. 4. History of hepatocellular carcinoma. 5. Erectile dysfunction. 6. Hypertension. 7. Neuroendocrine tumor. 8. Osteoarthritis. 9. Osteoporosis. stable H&H no GIB tolerating diet fu urology Subjective ROS Limited/Unobtainable: No Allergies: Coded Allergies: ASPIRIN (Verified Allergy, Unknown, 12/02/19) FISH CONTAINING PRODUCTS (Verified Allergy, Unknown, 12/02/19) SHELLFISH DERIVED (Verified Allergy, Unknown, 12/03/19) Objective Last 24 Hour Vital Signs Date Time Temp Pulse Resp B/P (MAP) Pulse Ox O2 Delivery O2 Flow Rate FiO2 12/04/19 11:42 97.2 81 18 91/58 (69) 98 12/04/19 11:41 65 81 70 12/04/19 08:49 67 116/77 12/04/19 08:40 Room Air 12/04/19 08:00 98.0 81 19 115/69 (84) 98 12/04/19 04:00 97.3 67 18 116/77 (90) 98 12/04/19 00:00 98.6 75 20 98/59 (72) 98 12/03/19 21:00 75 85 87 12/03/19 21:00 Room Air 12/03/19 20:00 98.2 108 20 136/57 (83) 94 12/03/19 20:00 97.5 97 20 96/56 (69) 98 12/03/19 20:00 115 12/03/19 16:37 69 12/03/19 16:00 98.8 70 20 140/73 (95) 98 12/03/19 16:00 111 Intake and Output 12/03/19 12/04/19 19:00 07:00 Intake Total 800 ml Output Total 2755 ml 750 ml Balance -2755 ml 50 ml IV Total 800 ml Output Urine Total 2755 ml 750 ml Laboratory Tests 12/04/19 05:11: White Blood Count 7.7, Red Blood Count 3.92L, Hemoglobin 13.9L, Hematocrit 41.3L , Mean Corpuscular Volume 105H, Mean Corpuscular Hemoglobin 35.4H, Mean Corpuscular Hemoglobin Concent 33.6, Red Cell Distribution Width 13.8, Platelet Count 166, Mean Platelet Volume 6.5, Neutrophils (%) (Auto) 69.8, Lymphocytes (% ) (Auto) 18.2L, Monocytes (%) (Auto) 9.8, Eosinophils (%) (Auto) 1.0, Basophils (%) (Auto) 1.3, Sodium Level 138, Potassium Level 4.0, Chloride Level 104, Carbon Dioxide Level 27, Anion Gap 8, Blood Urea Nitrogen 7, Creatinine 0.8, Estimat Glomerular Filtration Rate > 60, Glucose Level 94, Calcium Level 8.9, Phosphorus Level 4.5, Magnesium Level 1.9 Height (Feet): 5 Height (Inches): 8.00 Weight (Pounds): 170 General Appearance: no apparent distress EENT: normal ENT inspection Neck: supple Cardiovascular: normal rate Respiratory/Chest: decreased breath sounds Abdomen: normal bowel sounds, non tender, soft Extremities: non-tender Cooper Plunkett MD Dec 04, 2019 12:42
[2019-12-04 16:00] VITALS: BP 106/61
[2019-12-04 20:00] VITALS: BP 116/63
--- NOTE | 2019-12-04 20:57 | Cardiology Progress Note ---
Assessment/Plan Assessment/Plan 1. Syncope, status post transurethral resection of prostate yesterday. 2. History of hypertension. 3. History of alcohol abuse. 4. History of hyponatremia, felt to be secondary to alcohol abuse. 5. History of NET of the gastrum , status post resection and radiation therapy. 6. Postherpetic neuralgia. 7. Orthostatic hypotension bp seem labile will check cortisol level in am echo note tele now off ekg sinus labs ok trop neg ivf dc norvasc Subjective Cardiovascular: Denies: chest pain, lightheadedness, palpitations Respiratory: Denies: shortness of breath Gastrointestinal/Abdominal: Denies: abdominal pain Genitourinary: Denies: burning Subjective in room translating Objective Last 24 Hour Vital Signs Date Time Temp Pulse Resp B/P (MAP) Pulse Ox O2 Delivery O2 Flow Rate FiO2 12/04/19 16:00 97.2 76 19 106/61 (76) 97 12/04/19 11:42 97.2 81 18 91/58 (69) 98 12/04/19 11:41 65 81 70 12/04/19 08:49 67 116/77 12/04/19 08:40 Room Air 12/04/19 08:00 98.0 81 19 115/69 (84) 98 12/04/19 04:00 97.3 67 18 116/77 (90) 98 12/04/19 00:00 98.6 75 20 98/59 (72) 98 12/03/19 21:00 75 85 87 12/03/19 21:00 Room Air General Appearance: no apparent distress, alert Neck: supple Cardiovascular: normal rate, regular rhythm Respiratory/Chest: lungs clear Abdomen: normal bowel sounds, non tender, soft Extremities: no swelling Intake and Output 12/03/19 12/04/19 19:00 07:00 Intake Total 800 ml Output Total 2755 ml 750 ml Balance -2755 ml 50 ml IV Total 800 ml Output Urine Total 2755 ml 750 ml Laboratory Tests Test 12/04/19 05:11 White Blood Count 7.7 K/UL (4.8-10.8) Red Blood Count 3.92 M/UL (4.70-6.10) L Hemoglobin 13.9 G/DL (14.2-18.0) L Hematocrit 41.3 % (42.0-52.0) L Mean Corpuscular Volume 105 FL (80-99) H Mean Corpuscular Hemoglobin 35.4 PG (27.0-31.0) H Mean Corpuscular Hemoglobin Concent 33.6 G/DL (32.0-36.0) Red Cell Distribution Width 13.8 % (11.6-14.8) Platelet Count 166 K/UL (150-450) Mean Platelet Volume 6.5 FL (6.5-10.1) Neutrophils (%) (Auto) 69.8 % (45.0-75.0) Lymphocytes (%) (Auto) 18.2 % (20.0-45.0) L Monocytes (%) (Auto) 9.8 % (1.0-10.0) Eosinophils (%) (Auto) 1.0 % (0.0-3.0) Basophils (%) (Auto) 1.3 % (0.0-2.0) Sodium Level 138 MMOL/L (136-145) Potassium Level 4.0 MMOL/L (3.5-5.1) Chloride Level 104 MMOL/L (98-107) Carbon Dioxide Level 27 MMOL/L (21-32) Anion Gap 8 mmol/L (5-15) Blood Urea Nitrogen 7 mg/dL (7-18) Creatinine 0.8 MG/DL (0.55-1.30) Estimat Glomerular Filtration Rate > 60 mL/min (>60) Glucose Level 94 MG/DL (74-106) Calcium Level 8.9 MG/DL (8.5-10.1) Phosphorus Level 4.5 MG/DL (2.5-4.9) Magnesium Level 1.9 MG/DL (1.8-2.4) Microbiology Date/Time Source Procedure Growth Status 12/02/19 12:00 Nasopharynx SARS-CoV-2 RdRp Gene Assay - Final Complete Kevin Ramirez MD Dec 04, 2019 20:57
[2019-12-05] VITALS: BP 108/60
[2019-12-05 04:00] VITALS: BP 110/66
[2019-12-05 05:40] LABS: BASOPHILS % (AUTO) 1.1 % (0.0-2.0); EOSINOPHILS % (AUTO) 3.6 % (0.0-3.0); HEMATOCRIT 37.6 % (42.0-52.0); HEMOGLOBIN 12.8 G/DL (14.2-18.0); LYMPHOCYTES % (AUTO) 24.4 % (20.0-45.0); MEAN CORPUSCULAR VOLUME 105 FL (80-99); MONOCYTES % (AUTO) 10.4 % (1.0-10.0); NEUTROPHILS % (AUTO) 60.6 % (45.0-75.0); PLATELET COUNT 164 K/UL (150-450); RED BLOOD COUNT 3.58 M/UL (4.70-6.10); RED CELL DISTRIBUTION WIDTH 13.8 % (11.6-14.8); WHITE BLOOD COUNT 4.9 K/UL (4.8-10.8)
[2019-12-05 05:54] LABS: ANION GAP 8 mmol/L (5-15); BLOOD UREA NITROGEN 8 mg/dL (7-18); CARBON DIOXIDE 25 MMOL/L (21-32); CHLORIDE 106 MMOL/L (98-107); CREATININE 0.8 MG/DL (0.55-1.30); POTASSIUM 4.2 MMOL/L (3.5-5.1); SODIUM 139 MMOL/L (136-145)
[2019-12-05 05:58] LABS: PHOSPHORUS 3.7 MG/DL (2.5-4.9)
[2019-12-05 08:00] VITALS: BP 96/56
[2019-12-05] MEDS: Thiamine 100mg tab ORAL SCH (08:38)
[2019-12-05] MEDS: Vitamin D 400 INTLU TAB ORAL SCH (08:38)
[2019-12-05] MEDS: Clobetasol Cream 0.05% 15gm TOPIC SCH (08:39)
[2019-12-05] MEDS: Multivitamin w/Minerals tab ORAL SCH (08:39)
[2019-12-05] MEDS: Flonase Nasal Inhaler 16gm NASAL SCH (08:39)
[2019-12-05] MEDS: Bactrim-DS 1 tab ORAL SCH (08:39)
[2019-12-05] MEDS: Doxazosin 4mg tab ORAL SCH (08:39)
--- NOTE | 2019-12-05 08:51 | Urology Progress Note ---
Assessment/Plan Assessment/Plan: 1. Gross hematuria, improving. 2. BPH history. 3. Urinary retention. 4. Rule out neurogenic bladder. 5. Urethral stenosis. monitor clinically maintain current martinez, placed 12/01 hand irrigated, no clots h/h, renal fxn stable off CBI hand irrigate martinez PRN on abx, proscar consider holding Elavil (can cause urinary retention) voiding trial later, likely as outpt d/w Dr. Champion Subjective Allergies: Coded Allergies: ASPIRIN (Verified Allergy, Unknown, 12/02/19) FISH CONTAINING PRODUCTS (Verified Allergy, Unknown, 12/02/19) SHELLFISH DERIVED (Verified Allergy, Unknown, 12/03/19) Subjective all noted, feels fair martinez indwelling, off CBI Objective Last 24 Hour Vital Signs Date Time Temp Pulse Resp B/P (MAP) Pulse Ox O2 Delivery O2 Flow Rate FiO2 12/05/19 08:00 97.5 80 20 96/56 (69) 99 12/05/19 04:00 98.1 72 20 110/66 (81) 99 12/05/19 00:00 98.2 68 19 108/60 (76) 97 12/04/19 21:00 Room Air 12/04/19 21:00 69 67 67 12/04/19 20:00 96.4 67 19 116/63 (80) 97 12/04/19 16:00 97.2 76 19 106/61 (76) 97 12/04/19 11:42 97.2 81 18 91/58 (69) 98 12/04/19 11:41 65 81 70 Intake and Output 12/04/19 12/05/19 19:00 07:00 Intake Total 300 ml 900 ml Output Total 2400 ml 400 ml Balance -2100 ml 500 ml IV Total 300 ml 900 ml Output Urine Total 2400 ml 400 ml # Voids 1 Microbiology Date/Time Source Procedure Growth Status 12/02/19 12:00 Nasopharynx SARS-CoV-2 RdRp Gene Assay - Final Complete Current Medications Medications (Trade) Dose Ordered Sig/Mala Route PRN Reason Start Time Stop Time Status Last Admin Dose Admin Acetaminophen (Tylenol) 650 mg Q6H PRN ORAL Mild Pain (Pain Scale 1-3) 12/04/19 00:00 01/01/20 17:59 Acetaminophen/ Hydrocodone Bitart ([place] 5/325) 1 tab Q6H PRN ORAL Moderate Breakthru Pain (5-7) 12/04/19 00:00 12/09/19 17:59 Amitriptyline HCl (Elavil) 50 mg BEDTIME ORAL 12/04/19 21:00 01/01/20 20:59 12/04/19 21:06 Clobetasol Propionate (Temovate) 1 applic TWICE A DAY TOPIC 12/04/19 09:00 03/02/20 08:59 12/05/19 08:39 Doxazosin Mesylate (Cardura) 4 mg DAILY ORAL 12/04/19 09:00 01/02/20 08:59 12/05/19 08:39 Finasteride (Proscar) 5 mg QHS ORAL 12/04/19 21:00 03/01/20 20:59 12/04/19 21:06 Fluticasone Propionate (Flonase) 2 spray DAILY NASAL 12/04/19 09:00 01/02/20 08:59 12/05/19 08:39 Folic Acid (Folate) 1 mg DAILY ORAL 12/04/19 09:00 01/02/20 08:59 12/05/19 08:39 Gabapentin (Neurontin) 600 mg THREE TIMES A DAY ORAL 12/04/19 13:00 01/02/20 12:59 12/05/19 08:39 Hydralazine HCl (Apresoline) 10 mg Q6H PRN ORAL For High Blood Pressure 12/04/19 00:00 03/01/20 17:59 Morphine Sulfate (Morphine Sulfate) 2 mg Q3H PRN IVP Severe Pain (Pain Scale 7-10) 12/04/19 00:00 12/09/19 17:59 Multivitamins Therapeutic (Therapeutic Multivitamin) 1 ea DAILY ORAL 12/04/19 09:00 01/02/20 08:59 12/05/19 08:39 Non-Formulary Medication (Non-Formulary Med) 1 ea DAILY ORAL 12/04/19 09:00 01/02/20 08:59 UNV Ondansetron HCl (Zofran) 8 mg Q8H PRN ORAL Nausea & Vomiting 12/04/19 02:15 01/01/20 18:14 Pantoprazole (Protonix) 40 mg DAILY ORAL 12/04/19 09:00 01/02/20 08:59 12/05/19 08:38 Sodium Chloride 1,000 ml @ 100 mls/hr Q10H IV 12/03/19 23:45 01/02/20 21:19 12/05/19 06:37 Sodium Chloride 1,000 ml @ 100 mls/hr Q10H IV 12/04/19 21:15 01/03/20 21:14 12/05/19 07:36 Thiamine HCl (Vitamin B1) 100 mg DAILY ORAL 12/04/19 09:00 01/02/20 08:59 12/05/19 08:38 Trimethoprim/ Sulfamethoxazole (Bactrim-DS) 1 tab Q12HR ORAL 12/04/19 09:00 12/09/19 20:59 12/05/19 08:39 Vitamin D (Vitamin D) 400 intlu DAILY ORAL 12/04/19 09:00 01/02/20 08:59 12/05/19 08:38 Laboratory Tests 12/05/19 05:24: White Blood Count 4.9, Red Blood Count 3.58L, Hemoglobin 12.8L, Hematocrit 37.6L , Mean Corpuscular Volume 105H, Mean Corpuscular Hemoglobin 35.8H, Mean Corpuscular Hemoglobin Concent 34.1, Red Cell Distribution Width 13.8, Platelet Count 164, Mean Platelet Volume 6.2L, Neutrophils (%) (Auto) 60.6, Lymphocytes ( %) (Auto) 24.4, Monocytes (%) (Auto) 10.4H, Eosinophils (%) (Auto) 3.6H, Basophils (%) (Auto) 1.1, Sodium Level 139, Potassium Level 4.2, Chloride Level 106, Carbon Dioxide Level 25, Anion Gap 8, Blood Urea Nitrogen 8, Creatinine 0.8 , Estimat Glomerular Filtration Rate > 60, Glucose Level 96, Calcium Level 9.0, Phosphorus Level 3.7, Magnesium Level 1.9, Cortisol AM Sample [Pending] Height (Feet): 5 Height (Inches): 8.00 Weight (Pounds): 170 Objective exam stable urine yellow/brandee off Jonathan Wilder MD Dec 05, 2019 08:51
--- NOTE | 2019-12-05 09:06 | Internal Med Progress Note ---
Subjective Physician Name Michael Champion Attending Physician Michael Champion M.D. Current Medications Medications (Trade) Dose Ordered Sig/Mala Route PRN Reason Start Time Stop Time Status Last Admin Dose Admin Acetaminophen (Tylenol) 650 mg Q6H PRN ORAL Mild Pain (Pain Scale 1-3) 12/04/19 00:00 01/01/20 17:59 Acetaminophen/ Hydrocodone Bitart ([place] 5/325) 1 tab Q6H PRN ORAL Moderate Breakthru Pain (5-7) 12/04/19 00:00 12/09/19 17:59 Amitriptyline HCl (Elavil) 50 mg BEDTIME ORAL 12/04/19 21:00 01/01/20 20:59 12/04/19 21:06 Clobetasol Propionate (Temovate) 1 applic TWICE A DAY TOPIC 12/04/19 09:00 03/02/20 08:59 12/05/19 08:39 Doxazosin Mesylate (Cardura) 4 mg DAILY ORAL 12/04/19 09:00 01/02/20 08:59 12/05/19 08:39 Finasteride (Proscar) 5 mg QHS ORAL 12/04/19 21:00 03/01/20 20:59 12/04/19 21:06 Fluticasone Propionate (Flonase) 2 spray DAILY NASAL 12/04/19 09:00 01/02/20 08:59 12/05/19 08:39 Folic Acid (Folate) 1 mg DAILY ORAL 12/04/19 09:00 01/02/20 08:59 12/05/19 08:39 Gabapentin (Neurontin) 600 mg THREE TIMES A DAY ORAL 12/04/19 13:00 01/02/20 12:59 12/05/19 08:39 Hydralazine HCl (Apresoline) 10 mg Q6H PRN ORAL For High Blood Pressure 12/04/19 00:00 03/01/20 17:59 Morphine Sulfate (Morphine Sulfate) 2 mg Q3H PRN IVP Severe Pain (Pain Scale 7-10) 12/04/19 00:00 12/09/19 17:59 Multivitamins Therapeutic (Therapeutic Multivitamin) 1 ea DAILY ORAL 12/04/19 09:00 01/02/20 08:59 12/05/19 08:39 Non-Formulary Medication (Non-Formulary Med) 1 ea DAILY ORAL 12/04/19 09:00 01/02/20 08:59 UNV Ondansetron HCl (Zofran) 8 mg Q8H PRN ORAL Nausea & Vomiting 12/04/19 02:15 01/01/20 18:14 Pantoprazole (Protonix) 40 mg DAILY ORAL 12/04/19 09:00 01/02/20 08:59 12/05/19 08:38 Sodium Chloride 1,000 ml @ 100 mls/hr Q10H IV 12/03/19 23:45 01/02/20 21:19 12/05/19 06:37 Sodium Chloride 1,000 ml @ 100 mls/hr Q10H IV 12/04/19 21:15 01/03/20 21:14 12/05/19 07:36 Thiamine HCl (Vitamin B1) 100 mg DAILY ORAL 12/04/19 09:00 01/02/20 08:59 12/05/19 08:38 Trimethoprim/ Sulfamethoxazole (Bactrim-DS) 1 tab Q12HR ORAL 12/04/19 09:00 12/09/19 20:59 12/05/19 08:39 Vitamin D (Vitamin D) 400 intlu DAILY ORAL 12/04/19 09:00 01/02/20 08:59 12/05/19 08:38 Allergies: Coded Allergies: ASPIRIN (Verified Allergy, Unknown, 12/02/19) FISH CONTAINING PRODUCTS (Verified Allergy, Unknown, 12/02/19) SHELLFISH DERIVED (Verified Allergy, Unknown, 12/03/19) Subjective feeling better today urine clearing up hemoglobin stable Objective Last Vital Signs Date Time Temp Pulse Resp B/P (MAP) Pulse Ox O2 Delivery O2 Flow Rate FiO2 12/05/19 08:00 97.5 80 20 96/56 (69) 99 12/04/19 21:00 Room Air Laboratory Tests Test 12/05/19 05:24 White Blood Count 4.9 K/UL (4.8-10.8) Red Blood Count 3.58 M/UL (4.70-6.10) L Hemoglobin 12.8 G/DL (14.2-18.0) L Hematocrit 37.6 % (42.0-52.0) L Mean Corpuscular Volume 105 FL (80-99) H Mean Corpuscular Hemoglobin 35.8 PG (27.0-31.0) H Mean Corpuscular Hemoglobin Concent 34.1 G/DL (32.0-36.0) Red Cell Distribution Width 13.8 % (11.6-14.8) Platelet Count 164 K/UL (150-450) Mean Platelet Volume 6.2 FL (6.5-10.1) L Neutrophils (%) (Auto) 60.6 % (45.0-75.0) Lymphocytes (%) (Auto) 24.4 % (20.0-45.0) Monocytes (%) (Auto) 10.4 % (1.0-10.0) H Eosinophils (%) (Auto) 3.6 % (0.0-3.0) H Basophils (%) (Auto) 1.1 % (0.0-2.0) Sodium Level 139 MMOL/L (136-145) Potassium Level 4.2 MMOL/L (3.5-5.1) Chloride Level 106 MMOL/L (98-107) Carbon Dioxide Level 25 MMOL/L (21-32) Anion Gap 8 mmol/L (5-15) Blood Urea Nitrogen 8 mg/dL (7-18) Creatinine 0.8 MG/DL (0.55-1.30) Estimat Glomerular Filtration Rate > 60 mL/min (>60) Glucose Level 96 MG/DL (74-106) Calcium Level 9.0 MG/DL (8.5-10.1) Phosphorus Level 3.7 MG/DL (2.5-4.9) Magnesium Level 1.9 MG/DL (1.8-2.4) Cortisol AM Sample Pending Microbiology Date/Time Source Procedure Growth Status 12/02/19 12:00 Nasopharynx SARS-CoV-2 RdRp Gene Assay - Final Complete Intake and Output 12/04/19 12/05/19 19:00 07:00 Intake Total 300 ml 900 ml Output Total 2400 ml 400 ml Balance -2100 ml 500 ml IV Total 300 ml 900 ml Output Urine Total 2400 ml 400 ml # Voids 1 Assessment/Plan Assessment/Plan #syncope- likely vasovagal #hematuria # BPHs/p TURP x2with nocturia-doxazosin 4 mg daily, pending repeat TURP # HTN - amlodipine 10 mg daily # Alcohol abuse - still occasional beer, last drink 1 week ago, per typically drinking 2-3 beers/day, no longer taking naltrexone per Dr. 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 Dec 05, 2019 09:06
--- NOTE | 2019-12-05 10:48 | General Progress Note ---
Assessment/Plan Assessment/Plan: 1. History of anemia requiring blood transfusions. 2. Anxiety. 3. BPH. 4. History of hepatocellular carcinoma. 5. Erectile dysfunction. 6. Hypertension. 7. Neuroendocrine tumor. 8. Osteoarthritis. 9. Osteoporosis. stable H&H no GIB tolerating diet fu urology Subjective ROS Limited/Unobtainable: No Allergies: Coded Allergies: ASPIRIN (Verified Allergy, Unknown, 12/02/19) FISH CONTAINING PRODUCTS (Verified Allergy, Unknown, 12/02/19) SHELLFISH DERIVED (Verified Allergy, Unknown, 12/03/19) Objective Last 24 Hour Vital Signs Date Time Temp Pulse Resp B/P (MAP) Pulse Ox O2 Delivery O2 Flow Rate FiO2 12/05/19 09:00 Room Air 12/05/19 09:00 65 88 90 12/05/19 08:00 97.5 80 20 96/56 (69) 99 12/05/19 04:00 98.1 72 20 110/66 (81) 99 12/05/19 00:00 98.2 68 19 108/60 (76) 97 12/04/19 21:00 Room Air 12/04/19 21:00 69 67 67 12/04/19 20:00 96.4 67 19 116/63 (80) 97 12/04/19 16:00 97.2 76 19 106/61 (76) 97 12/04/19 11:42 97.2 81 18 91/58 (69) 98 12/04/19 11:41 65 81 70 Intake and Output 12/04/19 12/05/19 19:00 07:00 Intake Total 300 ml 900 ml Output Total 2400 ml 400 ml Balance -2100 ml 500 ml IV Total 300 ml 900 ml Output Urine Total 2400 ml 400 ml # Voids 1 Laboratory Tests 12/05/19 05:24: White Blood Count 4.9, Red Blood Count 3.58L, Hemoglobin 12.8L, Hematocrit 37.6L , Mean Corpuscular Volume 105H, Mean Corpuscular Hemoglobin 35.8H, Mean Corpuscular Hemoglobin Concent 34.1, Red Cell Distribution Width 13.8, Platelet Count 164, Mean Platelet Volume 6.2L, Neutrophils (%) (Auto) 60.6, Lymphocytes ( %) (Auto) 24.4, Monocytes (%) (Auto) 10.4H, Eosinophils (%) (Auto) 3.6H, Basophils (%) (Auto) 1.1, Sodium Level 139, Potassium Level 4.2, Chloride Level 106, Carbon Dioxide Level 25, Anion Gap 8, Blood Urea Nitrogen 8, Creatinine 0.8 , Estimat Glomerular Filtration Rate > 60, Glucose Level 96, Calcium Level 9.0, Phosphorus Level 3.7, Magnesium Level 1.9, Cortisol AM Sample [Pending] Height (Feet): 5 Height (Inches): 8.00 Weight (Pounds): 170 General Appearance: no apparent distress EENT: PERRL/EOMI Neck: supple Cardiovascular: normal rate Respiratory/Chest: decreased breath sounds Abdomen: normal bowel sounds, non tender, soft Extremities: non-tender Cooper Plunkett MD Dec 05, 2019 10:48
[2019-12-05] MEDS ORDERED: NS Irrig 4000ml IRRIG ONE (11:30)
--- NOTE | 2019-12-07 14:37 | Discharge Summary ---
Rosalie Moore CONSTRUCTION DRILLER 12/07/19 1437: Discharge Summary Discharge Summary _ DATE OF ADMISSION: 12/02/2019 DATE OF DISCHARGE: 12/05/2019 DISCHARGED BY: Dr. Michael Champion CONSULTANTS: Dr. Mery Ramirez [facility] HOSPITAL COURSE: The patient is a 74-year-old male, with past medical history of cancer status post resection, was brought in by ambulance status post witnessed syncopal episode prior to arrival. Patient is a poor historian. He gets chemotherapy every 4 to 6 weeks at [facility]. According to EMS report, the patient's family was on scene and told him that the patient was in the kitchen when he passed out and fell forward onto his right shoulder. They assisted him to the ground. There was questionable head trauma. Denies intake of blood thinners. Patient denied prodromal chest pain, shortness of breath, headache, neck pain, nausea, vomiting, diarrhea, melena or hematochezia. The patient was status post TURP the day prior. Records from care everywhere from [facility] was reviewed. Patient has a history of neuroendocrine tumor of the gastric antrum, status post resection, history of BPH, hypertension, alcohol abuse, hyponatremia secondary to alcohol abuse, vitamin D deficiency/osteoporosis, postherpetic neuralgia. On evaluation at ED, patient had gross hematuria. There were no focal neuro deficits. Chest x-ray did not show any acute disease. Shoulder x-ray was within normal limits. Head CT was negative for acute intracranial hemorrhage. Patient appeared well-hydrated without any evidence of severe dehydration or acute hypovolemia hypovolemia. He was admitted for evaluation of syncope. He was admitted to telemetry floor. Cardiac enzymes were monitored. Operations Specialist was consulted. Echocardiogram and orthostatic vitals were checked. Urologist was consulted. Attempted had irrigated the 16 Iraqi Card catheter was done. There were copious clots and some resistance to irrigation. Card catheter was then removed. Urethra was dilated and urologist inserted a 24 Iraqi three-way catheter. Hand irrigation was done until your urine cleared. Card was connected to continuous bladder irrigation with normal saline. He was given prophylactic finasteride. GI was consulted. Patient did not have any evidence of active GI bleed. He was eating well. H&H were stable. Serial troponin were negative. Carotid duplex showed less than 50% diameter narrowing of bilateral internal carotid arteries. He was transferred to [facility]. Blood pressure was labile. Norvasc was eventually discontinued. Urine eventually cleared. He was taken off CBI. H&H were stable. Patient was eventually cleared for discharge home. Advised to follow-up with urologist. Voiding trials to be done as outpatient. FINAL DIAGNOSES: Syncope, likely vasovagal Gross hematuria Urinary retention BPH status post recent TURP Hypertension Alcohol abuse Hyponatremia Vitamin D deficiency/osteoporosis Neuroendocrine tumor of gastric antrum status post resection and chemotherapy Postherpetic neuralgia DISPOSITION: Patient was discharged home with home health. DISCHARGE INSTRUCTIONS: Follow-up in a week. I have been assigned to complete a discharge summary on this account, I was not involved with the patient's management.--MARY BETH Mccurdy Aslan M.D. 12/09/19 1945: Rosalie Moore NP Dec 07, 2019 14:37 Michael Champion M.D. Dec 09, 2019 19:45
--- NOTE | 2019-12-10 01:37 | Cardiology Report ---
APPROVED REPORT EKG Measurement Heart [id number] <Conclusion> Normal sinus rhythm Minimal voltage criteria for LVH, may be normal variant Borderline ECG
--- NOTE | 2019-12-10 01:43 | Cardiology Report ---
APPROVED REPORT EKG Measurement Heart [id number] <Conclusion> Normal sinus rhythm Minimal voltage criteria for LVH, may be normal variant Borderline ECG
--- NOTE | 2019-12-10 01:43 | Cardiology Report ---
APPROVED REPORT EXAM: Three-dimensional, Two-dimensional and M-mode echocardiogram with Doppler and color Doppler. INDICATION Other M-Mode DIMENSIONS Left Atrium (MM)2.9 (1.6-4.0cm) Aortic Root2.8 (2.0-3.7cm) Aortic Cusp Exc.1.7 (1.5-2.0cm) EPSS0.7 (>1.0cm) <Conclusion> Technically difficult study due to poor acoustical windows. M-mode measurements of left ventricle not obtainable due to cardiac position (angle) Normal left ventricular chamber size, systolic function and wall motion to extent visualized. Left ventricular ejection fraction estimated to be 65 %. Study quality precludes accurate assessment of regional wall motion. Mild left ventricular hypertrophy. No evidence of pericardial effusion. All other cardiac chamber sizes are within normal limits. Focal aortic valve sclerosis with adequate cusp excursion. Thickened mitral valve leaflets with normal excursion. Mitral annulus and aortic root calcification. Pulmonic valve not well visualized. Normal tricuspid valve structure. IVC at normal size with physiologic collapse. A color flow and spectral Doppler study was performed and revealed: Mild aortic insufficiency. Trace mitral regurgitation. Mitral diastolic velocities suggest reduced left ventricular relaxation c/w impaired relaxation grade I diastolic dysfunction. Trace tricuspid regurgitation. Tricuspid systolic velocities suggests peak right ventricular systolic pressure of 10 mmHg No Pulmonic regurgitation present.
--- NOTE | 2019-12-15 23:37 | Coder Physician Query ---
Clarification is required for compliance, coding accuracy, and to reflect severity of illness for this patient Dear Dr. Champion Date: 12/15/19 Field Insurance Sales Manager/CDS Name: SolitarioDELVIN "Syncope" QUERY: BRIEF HOSPITAL COURSE: The patient is a 74-year-old male, with past medical history of cancer status post resection, was brought in by ambulance status post witnessed syncopal episode prior to arrival. Patient is a poor historian. He gets chemotherapy every 4 to 6 weeks at [facility]. According to EMS report, the patient's family was on scene and told him that the patient was in the kitchen when he passed out and fell forward onto his right shoulder. They assisted him to the ground. There was questionable head trauma. Denies intake of blood thinners. Patient denied prodromal chest pain, shortness of breath, headache, neck pain, nausea, vomiting, diarrhea, melena or hematochezia. The patient was status post TURP the day prior. Patient has a history of neuroendocrine tumor of the gastric antrum, status post resection, history of BPH, hypertension, alcohol abuse, hyponatremia secondary to alcohol abuse, vitamin D deficiency/osteoporosis, postherpetic neuralgia. Serial troponin were negative. Carotid duplex showed less than 50% diameter narrowing of bilateral internal carotid arteries.Blood pressure was labile. Norvasc was eventually discontinued. FINAL DIAGNOSES: Syncope, likely vasovagal, Gross hematuria, Urinary retention BPH status post recent TURP Hypertension,Alcohol abuse, Hyponatremia Vitamin D deficiency/osteoporosis Neuroendocrine tumor of gastric antrum status post resection and chemotherapy Postherpetic neuralgia Please specify the cause of the SYNCOPE EPISODE? [] Dehydration [] Orthostatic Hypotension [] Dialysis Disequilibrium Syndrome [] Heat [] Other: [] Unable to determine Physician signature Date Please also document in your Progress Notes and/or Discharge Summary and indicate if the condition was present on admission. DANNIED
== END 2019-12-05 11:31 | disposition home or self-care (01) | DRG 312 ==
LOC: EDBD 12:43 → EMR 13:39 → 2E 13:43 → EDBEDREQ 14:02 → 4E 12-03 22:51
DX: R55 Syncope and collapse (principal); B02.29 Other postherpetic nervous system involvement; E87.1 Hypo-osmolality and hyponatremia; C7A.8 Other malignant neuroendocrine tumors; Q62.10 Congenital occlusion of ureter, unspecified; R31.0 Gross hematuria; N40.1 Benign prostatic hyperplasia with lower urinary tract symptoms; R33.8 Other retention of urine; Z88.6 Allergy status to analgesic agent; M81.0 Age-related osteoporosis without current pathological fracture; E55.9 Vitamin D deficiency, unspecified; I10 Essential (primary) hypertension; F10.11 Alcohol abuse, in remission; Z79.899 Other long term (current) drug therapy; I35.1 Nonrheumatic aortic (valve) insufficiency; Z92.3 Personal history of irradiation; Z90.3 Acquired absence of stomach [part of]
CPT/HCPCS: 36415; 70450; 71045; 80048; 80053; 82248; 82533; 83690; 83735; 83880; 84100; 84484; 85025; 85610; 85730; 86850; 86900; 86901; 93005; 93306; 93880; 96361; 96374; 99285; J7030; U0002